=== PATIENT | male | born 1980 | race Caucasian/White ===

== ENCOUNTER → 2019-12-03 15:09 | Outpatient (BNVA) | payer MEDICARE, OTHER, SELFPAY | PROVIDERS: Family Provider Family Medicine; PCP Family Medicine; Visit Provider Podiatrist Foot & Ankle Surgery | DX: S92.351A Displaced fracture of fifth metatarsal bone, right foot, initial encounter for closed fracture (principal); X58.XXXA Exposure to other specified factors, initial encounter | CPT/HCPCS: 73630 ==

== ENCOUNTER → 2020-01-16 14:16 | Outpatient (BNVA) | payer MEDICARE, OTHER, SELFPAY | PROVIDERS: Family Provider Family Medicine; PCP Family Medicine; Visit Provider Podiatrist Foot & Ankle Surgery | DX: S92.355A Nondisplaced fracture of fifth metatarsal bone, left foot, initial encounter for closed fracture (principal); X58.XXXA Exposure to other specified factors, initial encounter | CPT/HCPCS: 73630 ==

== ENCOUNTER 2020-02-07 14:34 | Outpatient (CLI) | payer MEDICARE, OTHER, SELFPAY ==
--- NOTE | 2020-02-07 14:42 | XR_ITS ---
WS: [id number] Chest 2 views, 02/07/2020 Clinical Data: ASSESS FOR METASTATIC DISEASE Comparison: PA and lateral chest, 02/29/2016. Findings: No nodules, masses or effusions are seen. The heart is normal. The pulmonary vascularity is not increased. No pneumonia or pneumothorax is seen. The patient is had a posterior lumbar fusion at L1-L2. XR/XR chest 2V* [id number] Impression: Negative chest.
== END 2020-02-07 14:35 | disposition home or self-care (01) ==
LOC: RAD 14:38
PROVIDERS: Family Provider Family Medicine; PCP Family Medicine; Visit Provider Internal Medicine Medical Oncology
DX: C64.2 Malignant neoplasm of left kidney, except renal pelvis (principal)
CPT/HCPCS: 71046

== ENCOUNTER → 2020-03-30 11:34 | Outpatient (BNVA) | payer MEDICARE, OTHER, SELFPAY | PROVIDERS: Family Provider Family Medicine; PCP Family Medicine; Visit Provider Podiatrist Foot & Ankle Surgery | DX: M79.671 Pain in right foot (principal); S92.351A Displaced fracture of fifth metatarsal bone, right foot, initial encounter for closed fracture; X58.XXXA Exposure to other specified factors, initial encounter | CPT/HCPCS: 73630 ==

== ENCOUNTER → 2020-05-28 14:12 | Outpatient (BNVA) | payer MEDICARE, OTHER, SELFPAY | PROVIDERS: Family Provider Family Medicine; PCP Family Medicine; Visit Provider Podiatrist Foot & Ankle Surgery | DX: S92.355G Nondisplaced fracture of fifth metatarsal bone, left foot, subsequent encounter for fracture with delayed healing (principal); X58.XXXD Exposure to other specified factors, subsequent encounter | CPT/HCPCS: 73630 ==

== ENCOUNTER 2020-08-31 13:27 | Outpatient (CLI) | payer MEDICARE, OTHER, SELFPAY ==
--- NOTE | 2020-08-31 13:41 | XRR_ITS ---
PROCEDURE INFORMATION: Exam: XR Lumbosacral Spine, 2 or 3 Views Exam date and time: 08/31/2020 2:15 PM Age: 40 years old Clinical indication: Low back pain; Prior surgery; Additional info: Metastatic malignant neoplasm/back pain w/radiculopathy TECHNIQUE: Imaging protocol: XR of the lumbosacral spine, 2 or 3 views. COMPARISON: MRI Lumbar Spine w/wo [id number] 05/16/2016 2:47 PM FINDINGS: Vertebrae: There is a healing compression fracture involving the L3 vertebral body status post kyphoplasty. Metallic transpedicular screws and rods are in place posterior to the lumbar spine. No acute fracture. Normal alignment. Soft tissues: Unremarkable. XR/XR lumbar spine 2-3V* [id number] IMPRESSION: 1. Healing compression fracture L3 status post kyphoplasty 2. Metallic orthopedic hardware posterior aspect of the lumbar spine
--- NOTE | 2020-08-31 14:13 | XR_ITS ---
WS: [id number] THORACIC SPINE TECHNIQUE: AP and lateral views are performed. HISTORY: METASTATIC NEOPLASM L KIDNEY/BACK PAIN COMPARISON: None available. Thoracic vertebra are normally aligned. The interpedicular distances are maintained. No loss of verte bral body height or disc space height. No destructive bone lesions are identified. The pedicles are a ll identified. XR/XR thoracic spine 3V* [id number] IMPRESSION: No destructive bone lesions identified. If patient continues with pain consider additional evaluation by CT or MRI which would be more sensitive for metastati c bone disease.
== END 2020-08-31 13:28 | disposition home or self-care (01) ==
LOC: RAD 13:33
PROVIDERS: PCP Family Medicine; Visit Provider Family Medicine
DX: C64.2 Malignant neoplasm of left kidney, except renal pelvis; M54.16 Radiculopathy, lumbar region; S32.030A Wedge compression fracture of third lumbar vertebra, initial encounter for closed fracture; X58.XXXA Exposure to other specified factors, initial encounter
CPT/HCPCS: 72072; 72100

== ENCOUNTER 2020-09-11 18:34 | Emergency (ER) | payer MEDICARE, OTHER, SELFPAY ==
[2020-09-11 19:04] VITALS: BP 134/93; PULSE 86; RESP 18; TEMP 36.7; O2SAT 94; BMI 26.4
[2020-09-11 20:13] VITALS: BP 145/96; PULSE 71; RESP 16; O2SAT 96
[2020-09-11 20:38] LABS: Alanine Aminotransferase 37 U/L (0-41); Albumin Level 4.4 g/dL (3.5-5.2); Alkaline Phosphatase 92 IU/L (40-130); Anion Gap 13.5 (5-19); Aspartate Amino Transferase 26 U/L (0-40); Blood Urea Nitrogen 17 mg/dL (6-20); Calcium 9.5 mg/dL (8.5-10.5); Carbon Dioxide 29 mmol/L (22-29); Chloride 101 mmol/L (98-107); Globulin 2.8 g/dL (1.3-4.6); Glomerular Filtration Rate 67.8 mL/min (90-130); Glucose 78 mg/dL (65-115); Osmolality Calculated 288 mOsm/kg (285-295); Potassium 4.5 mmol/L (3.5-5.1); Sodium 139 mmol/L (136-145); Total Bilirubin 0.3 mg/dL (0.15-1.2); Total Protein 7.2 g/dL (6.6-8.7)
[2020-09-11 20:49] LABS: Basophils % 0.5 %; Eosinophils # 0.1 10^3/uL (0.0-0.8); Eosinophils % 2.1 %; Hematocrit 45.9 % (42.0-52.0); Hemoglobin 15.4 g/dL (11.7-16.6); Lymphocytes % 17.7 %; Mean Corpuscular HGB Conc 33.6 g/dL (30.0-36.0); Mean Corpuscular Hemoglobin 28.8 pg (28.0-34.0); Mean Platelet Volume 10.7 fL (7.4-10.4); Monocytes # 0.5 10^3/uL (0.2-0.9); Neutrophils # 4.07 10^3/uL (1.8-7.7); Neutrophils % 70.5 %; Nucleated Red Blood Cells % 0 %; Platelet Count 153 10^3/cmm (130-400); Red Blood Count 5.34 10^6/uL (4.1-5.3); Red Cell Distribution Width 12.4 % (12.1-15.1); White Blood Count 5.8 10^3/uL (4.0-10.0)
[2020-09-11] MEDS: sodium chloride 0.9% 1,000 ML 999 ML IV (20:50)
[2020-09-11 20:53] VITALS: BP 157/102; PULSE 69; O2SAT 96
[2020-09-11 21:00] VITALS: BP 133/96; PULSE 74; RESP 16; O2SAT 96
[2020-09-11 22:19] VITALS: BP 129/97; PULSE 68; O2SAT 97
--- NOTE | 2020-09-12 00:13 | W.ED.WEAKNES ---
HPI - Weakness General: Chief complaint: Weakness Stated complaint: PHY REFERRAL Time Seen by Provider: 09/11/20 20:15 History of Present Illness: HPI Narrative: 40-year-old male with history of renal cell carcinoma under treatment with immunotherapy presents after feeling of generalized weakness the past couple of days. He was noted to have some blood in his stool over the last week. More so last week than this week he said it was constipated and the constipation has been relieved. He is now just having some blood streaking with stool he has had no fever. No vomiting. Symptoms of generalized weakness and fatigue. MD Complaint: generalized weakness Duration: constant and improved Location: generalized Migration: none Severity: moderate Exacerbating factors: exertion Associated symptoms: Denies chest pain, chills, melena, dysuria, fever(s), headache(s), nausea or vomiting Review of Systems Const: Denies: fever(s) or chills Eyes: Denies: change in vision ENMT: Denies: odynophagia, swelling of lips/tongue, bleeding gums, epistaxis, post nasal drip or sinus pain Card: Denies: chest pain, palpitations or irregular heart rhythm Resp: Denies: dyspnea, productive cough, non-productive cough or wheezing GI: Reports: hematochezia; Denies: abdominal pain, nausea, vomiting, rectal pain or melena : Denies: difficulty urinating, dysuria or hematuria Musc: Reports: back pain; Denies: neck pain or joint warmth Skin/Breast: Denies: rash or erythema Neuro: Denies: headache(s), dizziness or vertigo Psych: Denies: anxiety PFSH ED PFSH: Medical History (Updated 09/11/20 @ 22:05 by John Paul Ceja DO) Closed nondisplaced fracture of fifth left metatarsal bone Diverticulitis of colon Family History Denies family history of Diabetes CAD (coronary artery disease) Clotting disorder Dementia Hyperlipidemia Psychiatric illness Chronic kidney disease (CKD) Suicide Anesthesia complication Bleeding disorder Family history of premature coronary artery disease Lung disease Cancer Hypertension Stroke Social History Smoking and tobacco status: never smoked Second hand smoke exposure: No Smoking risk assessment/counseling performed?: Yes Alcohol intake: never Desire information about alcohol rehabilitation?: No Counseling given: No Desire information about substance/drug rehabilitation?: No Counseling given: No Physical Exam Const: GENERAL APPEARANCE: well developed ORIENTATION/CONSCIOUSNESS: Yes oriented to person, Yes oriented to place and Yes oriented to time HENMT: COMMON NORMALS: normocephalic, external ears normal and Normal external nose present HEAD & SCALP: normocephalic FACE & SINUS: normal facial exam NOSE: Normal external nose present and No nasal discharge present EXTERNAL EAR: Yes external ears normal THROAT: posterior oropharynx normal; no peritonsillar mass Eye: COMMON NORMALS: Equal, round and reactive pupils present, EOMs intact bilaterally and conjunctivae normal EYELID: eyelids normal CONJUNCTIVA: Yes conjunctivae normal PUPIL: Yes Equal, round and reactive pupils present Neck/C-Spine: GENERAL: No tracheal deviation Chest: COMMONS NORMALS: normal inspection of the chest CHEST: No tenderness Resp: COMMON NORMALS: clear to auscultation bilaterally EFFORT & INSPECTION: No tachypneic, No respiratory distress, No retractions, No uses accessory muscles and No tracheal deviation AUSCULTATION: clear to auscultation bilaterally, no rhonchi, no wheezes and lung sounds not diminished Cardio: COMMON NORMALS: regular rate and regular rhythm RATE: regular rate RHYTHM: regular rhythm HEART SOUNDS: no murmurs PERIPHERAL PULSES: radial pulses present GI: INSPECTION: No abdominal distension AUSCULTATION: No Hyperactive bowel sounds present and No Hypoactive bowel sounds present PALPATION: No Guarding due to palpation present (GI) and No Rigid due to palpation PERCUSSION: no dullness to percussion and no tympanic to percussion Neuro: SENSORIUM/ORIENTATION: Yes oriented to person, Yes oriented to place and Yes oriented to time Psych: COMMON NORMALS: mental status grossly normal Skin: COMMON NORMALS: no rashes or lesions noted GENERAL SKIN EXAM: no rashes or lesions noted Course Vital Signs: Vital signs: Vital Signs Temperature 98.1 F 09/11/20 19:04 Pulse Rate 68 09/11/20 22:19 Respiratory Rate 16 09/11/20 21:00 Blood Pressure 129/97 09/11/20 22:19 Pulse Oximetry 97 09/11/20 22:19 MDM - Weakness MDM Narrative: Medical decision making narrative: Patient had talked to the oncologist employment consultant, and the concern was for anemia given his history of GI bleeding, mainly last week. He is under immunotherapy for his renal cell carcinoma. His hemoglobin is 15. His white blood cell count is 5.8. There is no electrolyte abnormality. The patient's symptoms are somewhat improved. He has received a liter of fluid. I offered the patient imaging to see if something may be awry. He notes he would rather go home at this point as he is feeling better than he was a couple of days ago. I think this is reasonable Lab Data: Labs: Lab Results 09/11/20 09/11/20 09/11/20 Range/Units 19:50 19:50 20:45 WBC 5.8 (4.0-10.0) 10^3/ uL RBC 5.34 H (4.1-5.3) 10^6/u L Hgb 15.4 (11.7-16.6) g/dL Hct 45.9 (42.0-52.0) % MCV 86.0 (80-94) fL MCH 28.8 (28.0-34.0) pg MCHC 33.6 (30.0-36.0) g/dL RDW 12.4 (12.1-15.1) % Plt Count 153 (130-400) 10^3/c mm MPV 10.7 H (7.4-10.4) fL Neut % (Auto) 70.5 % Lymph % (Auto) 17.7 % [place] % (Auto) 9.0 % Eos % (Auto) 2.1 % Baso % (Auto) 0.5 % Neut # (Auto) 4.07 (1.8-7.7) 10^3/u L Lymph # (Auto) 1.0 (0.8-4.8) 10^3/u L [place] # (Auto) 0.5 (0.2-0.9) 10^3/u L Eos # (Auto) 0.1 (0.0-0.8) 10^3/u L Baso # (Auto) 0.0 (0.0-0.1) 10^3/u L Nucleated RBC % (a uto) 0 % Nucleated RBCs # 0.0 /100WBC Sodium 139 (136-145) mmol/L Potassium 4.5 (3.5-5.1) mmol/L Chloride 101 (98-107) mmol/L Carbon Dioxide 29 (22-29) mmol/L Anion Gap 13.5 (5-19) BUN 17 (6-20) mg/dL Creatinine 1.2 (0.7-1.2) mg/dL GFR Calculation 67.8 L (90-130) mL/min Glucose 78 (65-115) mg/dL Calculated Osmolal ity 288 (285-295) mOsm/k g Calcium 9.5 (8.5-10.5) mg/dL Total Bilirubin 0.3 (0.15-1.2) mg/dL AST 26 (0-40) U/L ALT 37 (0-41) U/L Alkaline Phosphata se 92 (40-130) IU/L Total Protein 7.2 (6.6-8.7) g/dL Albumin 4.4 (3.5-5.2) g/dL Globulin 2.8 (1.3-4.6) g/dL Blood Type O Positive Rho(D) Type Positive Antibody Screen Negative Discharge Plan Discharge Patient Disposition: Home Clinical Impression: Dehydration Condition: Stable Prescriptions: No Action oxycodone 15 mg tablet 15 mg PO BID PRNRF: 0 (DME) Orthofix Bone stimulator Qty: 1 RF: 0 Discharge Orders: Discharge Order (Routine); Ordered 09/11/20 Ordered By: John Paul Ceja Referrals: Celestino Hurst DO [Primary Care Provider] - Discharge Diet: Advance as tolerated Discharge Activity: Increase activity as tolerated Patient Instructions: Dehydration (ED) Activity Restrictions/Additional Instructions: Return for worsening dizziness, worsening bleeding from the bowel, fever greater than 100, other concerning symptoms. Discharge Date/Time: 09/11/20 22:25 Coding Level of Care Code ED Extension Course Coordinator for Jose Fletcher
== END 2020-09-11 22:25 | disposition home or self-care (01) ==
PROVIDERS: Emergency Provider Emergency Medicine; PCP Family Medicine
DX: E86.0 Dehydration (principal)
CPT/HCPCS: 12345; 80053; 85025; 86850; 86900; 96360; 99283; J7030

== ENCOUNTER 2020-09-26 13:53 | Emergency (ER) | payer MEDICARE, OTHER, SELFPAY ==
[2020-09-26 13:54] VITALS: BP 138/97; PULSE 99; RESP 18; TEMP 36.9; O2SAT 97; BMI 27.1
--- NOTE | 2020-09-26 14:16 | CTR_ITS ---
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 Radiation optimization: All CT scans at this facility use at least one of these dose optimization techniques: automated exposure control; mA and/or kV adjustment per patient size (includes targeted exams where dose is matched to clinical indication); or iterative reconstruction. COMPARISON: [place] [id number] 05/06/2016 8:07 AM, three-view lumbar spine 08/31/2020. [facility] RADIATION DOSE METRICS: Total DLP (mGy-cm): 2240.21 FINDINGS: Vertebrae: Known L3 lytic lesion status post cement injection along with bilateral L1 through L5 transpedicular screw and posterior tanna fixation hardware in place. There are minimally displaced fractures involving the L3 vertebral body and cement of uncertain age as well as mild L3 superior and inferior endplate concave deformities which may have been present on 08/31/2020. Possible tumor destroying/replacing the L3 pedicles and posterior elements versus prior surgical resection. Other bones/joints: 2.3 x 3.4 cm mixed lytic and sclerotic lesion posterior-medial aspect of right iliac bone. Soft tissues: Unremarkable. CT/CT lumbar spine wo con* [id number] IMPRESSION: 1.) Known L3 lytic lesion status post cement injection along with bilateral L1 through L5 transpedicular screw and posterior tanna fixation hardware in place. There are minimally displaced fractures involving the L3 vertebral body and cement of uncertain age as well as mild L3 superior and inferior endplate concave deformities which may have been present on 08/31/2020. Possible tumor destroying/replacing the L3 pedicles and posterior elements versus prior surgical resection. 2.)2.3 x 3.4 cm mixed lytic and sclerotic lesion posterior-medial aspect of right iliac bone. Radiation Dose CTDIVOL = (mGy): DLP = 2240.21 (mGy-cm)
--- NOTE | 2020-09-26 14:16 | CTR_ITS ---
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 Radiation optimization: All CT scans at this facility use at least one of these dose optimization techniques: automated exposure control; mA and/or kV adjustment per patient size (includes targeted exams where dose is matched to clinical indication); or iterative reconstruction. COMPARISON: CR XR thoracic spine 3V* [id number] 08/31/2020 2:17 PM RADIATION DOSE METRICS: Total DLP (mGy-cm): 1626.32 FINDINGS: Vertebrae: Focal lytic lesions posterior portions of the T10 and T12 vertebral bodies and more diffusely throughout the T11 vertebral body worrisome for metastatic disease. No pathologic compression fracture evident. T1-T2: No significant disc protrusion. No severe spinal canal stenosis. No significant neural foraminal narrowing. T2-T3: No significant disc protrusion. No severe spinal canal stenosis. No significant neural foraminal narrowing. T3-T4: No significant disc protrusion. No severe spinal canal stenosis. No significant neural foraminal narrowing. T4-T5: No significant disc protrusion. No severe spinal canal stenosis. No significant neural foraminal narrowing. T5-T6: No significant disc protrusion. No severe spinal canal stenosis. No significant neural foraminal narrowing. T6-T7: No significant disc protrusion. No severe spinal canal stenosis. No significant neural foraminal narrowing. T7-T8: No significant disc protrusion. No severe spinal canal stenosis. No significant neural foraminal narrowing. T8-T9: No significant disc protrusion. No severe spinal canal stenosis. No significant neural foraminal narrowing. T9-T10: No significant disc protrusion. No severe spinal canal stenosis. No significant neural foraminal narrowing. T10-T11: No significant disc protrusion. No severe spinal canal stenosis. No significant neural foraminal narrowing. T11-T12: No significant disc protrusion. No severe spinal canal stenosis. No significant neural foraminal narrowing. T12-L1: No significant disc protrusion. No severe spinal canal stenosis. No significant neural foraminal narrowing. CT/CT thoracic spin wo con* [id number] IMPRESSION: Focal lytic lesions posterior portions of the T10 and T12 vertebral bodies and more diffusely throughout the T11 vertebral body worrisome for metastatic disease. No pathologic compression fracture evident. Radiation Dose CTDIVOL = (mGy): DLP = 1626.32 (mGy-cm)
--- NOTE | 2020-09-26 14:18 | W.ED.BACK ---
Documented by User: RAQUEL Irizarry 09/26/20 17:27 HPI - Back Pain/Injury General: Chief Complaint: Back Pain/Injury Stated Complaint: back pain/ feels like he broke rods in back Time Seen by Provider: 09/26/20 14:01 History of Present Illness: HPI Narrative: 40-year-old male patient presents to the emergency department with concern that tanna has popped in the lower back. He reports he bent over and picked up a sock off the floor, felt a large pop in his back, concern for hardware failure/fracture, has occurred in the past. He reports pain with movement, along with popping sensation. First lumbar back surgery 2016 due to renal cell carcinoma metastatic disease, reports removal of L3 due to metastatic lesion, fusion of L1 and L2 and L4 and L5. He reports fusion did not take; reports additional hardware and screws at [facility] in 2018 to the lumbar spine. He continues with radiation and immunotherapy at [facility] for renal cell carcinoma metastatic disease. States cool sensation feeling in the bilateral lower extremities, denies weakness, denies upper extremity weakness or neuropathy symptoms. MD elicited complaint: back pain and back injury Pertinent past history: prior back pain Onset (ago): day(s) (1) Timing: intermittent Similar Symptoms Previously: Yes Quality: dull and throbbing Location: lumbar spine and thoracic spine Radiation: none Exacerbating factors: movement Relieving factors: immobilization Context: bending Associated symptoms: Reports tingling/numbness/burning; Deny abdominal pain, chills, dysuria, fever(s), nausea, urinary urgency or vomiting Treatments prior to arrival: prescription analgesics Review of Systems General: Reports: 10 or more systems reviewed and unremarkable except in HPI and below Const: Denies: fever(s), chills or diaphoresis Eyes: Denies: blurry vision or eye redness ENMT: Denies: throat pain, dental pain or disequilibrium Card: Denies: chest pain, palpitations or irregular heart rhythm Resp: Denies: dyspnea, productive cough, non-productive cough or wheezing GI: Denies: abdominal pain, nausea or vomiting : Denies: difficulty urinating, dysuria or urinary urgency Musc: Reports: back pain; Denies: neck pain, extremity pain, joint warmth or muscle cramps Skin/Breast: Denies: rash or pruritus Neuro: Denies: headache(s), weakness in extremities or behavioral changes Psych: Denies: anxiety or depression Gabriel/Lymph: Denies: easy bruising PFSH ED PFSH: Medical History Closed nondisplaced fracture of fifth left metatarsal bone Diverticulitis of colon Family History Denies family history of Diabetes CAD (coronary artery disease) Clotting disorder Dementia Hyperlipidemia Psychiatric illness Chronic kidney disease (CKD) Suicide Anesthesia complication Bleeding disorder Family history of premature coronary artery disease Lung disease Cancer Hypertension Stroke Social History Smoking and tobacco status: never smoked Second hand smoke exposure: No Smoking risk assessment/counseling performed?: Yes Alcohol intake: never Desire information about alcohol rehabilitation?: No Counseling given: No Desire information about substance/drug rehabilitation?: No Counseling given: No Physical Exam Const: COMMON NORMALS: no acute distress, patient oriented x3, healthy appearing and alert GENERAL APPEARANCE: cooperative, comfortable and well hydrated HENMT: COMMON NORMALS: normocephalic, Normal external nose present and moist oral mucous membranes HEAD & SCALP: normocephalic NOSE: Normal external nose present Eye: COMMON NORMALS: Equal, round and reactive pupils present and EOMs intact bilaterally GENERAL EYE: appearance normal, both eyes and all related structures PUPIL: Yes Equal, round and reactive pupils present Neck/C-Spine: COMMON NORMALS: full ROM and no lymphadenopathy GENERAL: Yes normal visual inspection and Yes trachea midline CERVICAL SPINE: Yes cervical ROM normal Lymph: LYMPHATIC: no lymphadenopathy noted Chest: COMMONS NORMALS: normal inspection of the chest and normal palpation of entire chest wall Resp: COMMON NORMALS: normal respiratory effort, No use of accessory muscles and clear to auscultation bilaterally EFFORT & INSPECTION: Yes able to speak in complete sentences AUSCULTATION: clear to auscultation bilaterally Cardio: COMMON NORMALS: regular rhythm, S1 normal heart sound present, S2 normal heart sound present and Peripheral pulses 2+ throughout RHYTHM: regular rhythm HEART SOUNDS: S1 normal heart sound present and S2 normal heart sound present PERIPHERAL PULSES: Peripheral pulses 2+ throughout GI: COMMON NORMALS: Normal to inspection, nondistended, normoactive bowel sounds present, Soft to palpation and non-tender INSPECTION: Yes normal to inspection PALPATION: Yes Soft to palpation : COMMON NORMALS: Yes no CVA tenderness BLADDER/KIDNEY EXAM: Yes no CVA tenderness and No CVA tenderness Back/Pelvis: COMMON NORMALS: no CVA tenderness GENERAL BACK: No CVA tenderness THORACIC SPINE/UPPER BACK: Yes normal to inspection, Yes thoracic ROM normal and Yes pain with ROM (Positive crepitus noted with movement) LUMBAR SPINE/LOWER BACK: Yes normal to inspection, Yes pain with ROM (popping to the lumbar spine, positive crepitus movement.) and No paraspinal muscle tenderness PELVIS: Yes buttocks normal SACROILIAC JOINTS: Yes SI joints normal SACRUM: no ecchymosis COCCYX: no swelling Extremity: COMMON NORMALS: normal to inspection and capillary refill normal GENERAL: Yes normal exam except as noted Neuro: COMMON NORMALS: patient oriented x3 and no focal motor deficits SENSORIUM/ORIENTATION: Yes alert SPEECH: speech normal GAIT: Yes Normal gait present MONOFILAMENT EXAM PERFORMED: Yes Monofilament Exam (small fiber function): L great toe: normal, L 3rd toe: normal, L 5th toe: normal, R great toe: decreased, R 3rd toe: normal and R 5th toe: normal MOTOR EXAM: 5/5 motor strength present throughout Psych: COMMON NORMALS: mental status grossly normal, Normal thought process present and cooperative ACTIVITY/MOTOR BEHAVIOR: Yes appropriate eye contact THOUGHT PROCESS: Normal thought process present Skin: COMMON NORMALS: no rashes or lesions noted and turgor normal GENERAL SKIN EXAM: no rashes or lesions noted and turgor normal Course ED course: 40-year-old male patient presents to the emergency department with concern of lumbar spine tanna displacement/fracture. 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 Reports pain resolved, he continues to experience popping sensation in his lumbar spine. Neuropathy/neurological compromise to the extremities not appreciated. [facility] contacted in regards to findings of CT of the thoracic and lumbar spine. Oncology, Dr. Jo prefers to have patient evaluated at [facility]. My conversation with radiologist, fractures could be unstable and uncertain how long fractures have been present. Findings discussed with the patient, agrees for transfer to [facility] for evaluation by his neurosurgeon and oncologist. Consultations: Consultation #1: Dr Jo, oncology - [facility] -discussed with Dr. Jo concerning findings of the thoracic spine CT and lumbar spine CT with new interval of minimally displaced fractures involving L3 vertebral body and cement of uncertain age as well as mild L3 superior and inferior endplate concave deformities which may have been present on a [place] [facility] [place] Upon my discussion with Dr. Jo, MRI completed last week did not appreciate such findings. He advised patient to be transferred to [facility] for evaluation by neurosurgery. PT PTT advised along with n.p.o. status. He agrees to accept patient to oncology if neurosurgery does not prefer to have patient on the neurosurgery unit. Vital Signs: Vital signs: Vital Signs Temperature 98.5 F 09/26/20 13:54 Pulse Rate 83 09/26/20 17:01 Respiratory Rate 15 09/26/20 17:01 Blood Pressure 143/83 09/26/20 17:01 Pulse Oximetry 100 09/26/20 17:01 MDM - Back Pain/Injury Lab Data: Labs: Lab Results 09/26/20 09/26/20 09/26/20 Range/Units 14:38 14:38 14:38 WBC 5.8 (4.0-10.0) 10^3/ uL RBC 5.39 H (4.1-5.3) 10^6/u L Hgb 15.6 (11.7-16.6) g/dL Hct 47.0 (42.0-52.0) % MCV 87.2 (80-94) fL MCH 28.9 (28.0-34.0) pg MCHC 33.2 (30.0-36.0) g/dL RDW 12.6 (12.1-15.1) % Plt Count 215 (130-400) 10^3/c mm MPV 9.9 (7.4-10.4) fL Neut % (Auto) 64.0 % Lymph % (Auto) 20.7 % [place] % (Auto) 13.1 % Eos % (Auto) 1.6 % Baso % (Auto) 0.3 % Neut # (Auto) 3.71 (1.8-7.7) 10^3/u L Lymph # (Auto) 1.2 (0.8-4.8) 10^3/u L [place] # (Auto) 0.8 (0.2-0.9) 10^3/u L Eos # (Auto) 0.1 (0.0-0.8) 10^3/u L Baso # (Auto) 0.0 (0.0-0.1) 10^3/u L Nucleated RBC % (a uto) 0 % Nucleated RBCs # 0.0 /100WBC PT 12.80 (12.1-14.9) SECO NDS INR 0.93 (0.8-1.2) APTT 28.6 (23.9-36.7) SECO NDS Sodium 142 (136-145) mmol/L Potassium 4.1 (3.5-5.1) mmol/L Chloride 103 (98-107) mmol/L Carbon Dioxide 31 H (22-29) mmol/L Anion Gap 12.1 (5-19) BUN 19 (6-20) mg/dL Creatinine 1.5 H (0.7-1.2) mg/dL GFR Calculation 52.4 L (90-130) mL/min Glucose 93 (65-115) mg/dL Calculated Osmolal ity 296 H (285-295) mOsm/k g Calcium 9.6 (8.5-10.5) mg/dL Total Bilirubin 0.3 (0.15-1.2) mg/dL AST 19 (0-40) U/L ALT 24 (0-41) U/L Alkaline Phosphata se 93 (40-130) IU/L Total Protein 7.0 (6.6-8.7) g/dL Albumin 4.4 (3.5-5.2) g/dL Globulin 2.6 (1.3-4.6) g/dL Imaging Data^: Other Xray: Radiologist's impression: [address] [address] [address] Scan Report Signed Patient: Lokesh Plummer Unit #: [id number] : 1980 Age/Sex: 40 / M ADM Date: 09/26/20 Loc: ER Room/Bed: Attending Dr: Ordering Provider/Ordering MD: Andie Dowell Date of Service: 09/26/20 Procedure(s): CT thoracic spin wo con* [id number] Accession Number(s): [id number] Report Number: [id number] PROCEDURE INFORMATION: Exam: CT Thoracic Spine Without Contrast Exam date and time: 09/26/2020 2:19 PM Age: 40 years old Clinical indication: Pain in thoracic spine; Without myelpathy or radiculopathy; Patient HX: HX of renal cell, 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 Radiation optimization: All CT scans at this facility use at least one of these dose optimization techniques: automated exposure control; mA and/or kV adjustment per patient size (includes targeted exams where dose is matched to clinical indication); or iterative reconstruction. COMPARISON: CR XR thoracic spine 3V* [id number] 08/31/2020 2:17 PM RADIATION DOSE METRICS: Total DLP (mGy-cm): 1626.32 FINDINGS: Vertebrae: Focal lytic lesions posterior portions of the T10 and T12 vertebral bodies and more diffusely throughout the T11 vertebral body worrisome for metastatic disease. No pathologic compression fracture evident. T1-T2: No significant disc protrusion. No severe spinal canal stenosis. No significant neural foraminal narrowing. T2-T3: No significant disc protrusion. No severe spinal canal stenosis. No significant neural foraminal narrowing. T3-T4: No significant disc protrusion. No severe spinal canal stenosis. No significant neural foraminal narrowing. T4-T5: No significant disc protrusion. No severe spinal canal stenosis. No significant neural foraminal narrowing. T5-T6: No significant disc protrusion. No severe spinal canal stenosis. No significant neural foraminal narrowing. T6-T7: No significant disc protrusion. No severe spinal canal stenosis. No significant neural foraminal narrowing. T7-T8: No significant disc protrusion. No severe spinal canal stenosis. No significant neural foraminal narrowing. T8-T9: No significant disc protrusion. No severe spinal canal stenosis. No significant neural foraminal narrowing. T9-T10: No significant disc protrusion. No severe spinal canal stenosis. No significant neural foraminal narrowing. T10-T11: No significant disc protrusion. No severe spinal canal stenosis. No significant neural foraminal narrowing. T11-T12: No significant disc protrusion. No severe spinal canal stenosis. No significant neural foraminal narrowing. T12-L1: No significant disc protrusion. No severe spinal canal stenosis. No significant neural foraminal narrowing. CT/CT thoracic spin wo con* [id number] IMPRESSION: Focal lytic lesions posterior portions of the T10 and T12 vertebral bodies and more diffusely throughout the T11 vertebral body worrisome for metastatic disease. No pathologic compression fracture evident. Radiation Dose CTDIVOL = (mGy): DLP = 1626.32 (mGy-cm) Dictated By: Ousmane Sommer MD Signed By: Ousmane Sommer MD Signed Date/Time: 09/26/20 1522 DD/ 1521 Other Imaging: Radiologist's impression: [place] [address] CT Scan Report Signed with Addenda Patient: Lokesh Plummer Unit #: [id number] : 1980 Age/Sex: 40 / M ADM Date: 09/26/20 Loc: ER Room/Bed: Attending Dr: Ordering Provider/Ordering MD: Andie Dowell Date of Service: 09/26/20 Procedure(s): CT lumbar spine wo con* [id number] Accession Number(s): [id number] Report Number: [id number]/CT lumbar spine wo con* [id number] Addendum created at 4:[address] findings discussed with SHREYSA Dowell via phone conference at 3:55 p.m.. Findings were understood and acknowledged. 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 Radiation optimization: All CT scans at this facility use at least one of these dose optimization techniques: automated exposure control; mA and/or kV adjustment per patient size (includes targeted exams where dose is matched to clinical indication); or iterative reconstruction. COMPARISON: [place] [id number] 05/06/2016 8:07 AM, three-view lumbar spine 08/31/2020. [facility] RADIATION DOSE METRICS: Total DLP (mGy-cm): 2240.21 FINDINGS: Vertebrae: Known L3 lytic lesion status post cement injection along with bilateral L1 through L5 transpedicular screw and posterior tanna fixation hardware in place. There are minimally displaced fractures involving the L3 vertebral body and cement of uncertain age as well as mild L3 superior and inferior endplate concave deformities which may have been present on 08/31/2020. Possible tumor destroying/replacing the L3 pedicles and posterior elements versus prior surgical resection. Other bones/joints: 2.3 x 3.4 cm mixed lytic and sclerotic lesion posterior-medial aspect of right iliac bone. Soft tissues: Unremarkable. CT/CT lumbar spine wo con* [id number] IMPRESSION: 1.) Known L3 lytic lesion status post cement injection along with bilateral L1 through L5 transpedicular screw and posterior tanna fixation hardware in place. There are minimally displaced fractures involving the L3 vertebral body and cement of uncertain age as well as mild L3 superior and inferior endplate concave deformities which may have been present on 08/31/2020. Possible tumor destroying/replacing the L3 pedicles and posterior elements versus prior surgical resection. 2.)2.3 x 3.4 cm mixed lytic and sclerotic lesion posterior-medial aspect of right iliac bone. Radiation Dose CTDIVOL = (mGy): DLP = 2240.21 (mGy-cm) Dictated By: Ousmane Sommer MD Signed By: Ousmane Sommer MD Signed Date/Time: 09/26/20 1549 DD/ 46 Discharge Plan Discharge Prescriptions: No Action oxycodone 15 mg tablet 15 mg PO BID PRN (Reason: Pain) RF: 0 OxyContin 40 mg Tablet,Oral Only,Ext.Rel.12 Hr 40 mg PO BID RF: 0 Coding Level of Care Code ED Devops Developer for Chg Fwd Exam Comprehensive Documented by User: José Diana DO 09/26/20 17:00 HPI - Back Pain/Injury General: Chief Complaint: Back Pain/Injury Stated Complaint: back pain/ feels like he broke rods in back Time Seen by Provider: 09/26/20 14:01 History of Present Illness: HPI Narrative: Patient initially seen by nurse practitioner. I was consulted due to the diagnosis. Talk to patient he is resting comfortably in the bed he has a grating sensation in his low back lungs he does not move he has minimal to no significant pain Andie Kunz's note was reviewed agree with diagnosis and discharge plan. She is talked to the neurosurgeon at [facility] and they will accept him. MD elicited complaint: back pain Pertinent past history: prior back pain Similar Symptoms Previously: Yes Quality: sharp Radiation: none Exacerbating factors: movement Relieving factors: immobilization Context: bending Associated symptoms: Reports arthralgias; Deny abdominal pain, chills, change in bowel habits, difficulty walking, dysuria, fatigue, fecal incontinence, fever(s), hematuria, myalgias, nausea, numbness, syncope, tingling/numbness/burning, urinary frequency, urinary urgency, vomiting or weakness Review of Systems Const: Denies: fever(s), chills or fatigue ENMT: Denies: throat pain, ear or mastoid pain, nasal discharge or nasal congestion Card: Denies: syncope Resp: Denies: dyspnea, productive cough or non-productive cough GI: Denies: abdominal pain, nausea, vomiting, fecal incontinence or change in bowel habits : Denies: dysuria, urinary urgency or hematuria Musc: Reports: back pain Skin/Breast: Denies: rash or pruritus Neuro: Denies: difficulty walking PFSH ED PFSH: Medical History Closed nondisplaced fracture of fifth left metatarsal bone Diverticulitis of colon Family History Denies family history of Diabetes CAD (coronary artery disease) Clotting disorder Dementia Hyperlipidemia Psychiatric illness Chronic kidney disease (CKD) Suicide Anesthesia complication Bleeding disorder Family history of premature coronary artery disease Lung disease Cancer Hypertension Stroke Social History Smoking and tobacco status: never smoked Second hand smoke exposure: No Smoking risk assessment/counseling performed?: Yes Alcohol intake: never Desire information about alcohol rehabilitation?: No Counseling given: No Desire information about substance/drug rehabilitation?: No Counseling given: No Physical Exam Const: COMMON NORMALS: no acute distress GENERAL APPEARANCE: cooperative and comfortable ORIENTATION/CONSCIOUSNESS: Yes awake, Yes oriented to person, Yes oriented to place and Yes oriented to time HENMT: COMMON NORMALS: normocephalic, atraumatic and hearing grossly normal bilaterally HEAD & SCALP: normocephalic and atraumatic Eye: COMMON NORMALS: Equal, round and reactive pupils present, EOMs intact bilaterally, conjunctivae normal and no scleral icterus CONJUNCTIVA: Yes conjunctivae normal PUPIL: Yes Equal, round and reactive pupils present Neck/C-Spine: COMMON NORMALS: no JVD Resp: COMMON NORMALS: normal respiratory effort, No retractions, No use of accessory muscles and clear to auscultation bilaterally AUSCULTATION: clear to auscultation bilaterally Cardio: COMMON NORMALS: no JVD, regular rate, regular rhythm and No murmurs present (Cardio) RATE: regular rate RHYTHM: regular rhythm Extremity: COMMON NORMALS: normal to inspection, capillary refill normal, no clubbing, cyanosis or edema, no calf tenderness and no pedal edema Neuro: SENSORIUM/ORIENTATION: Yes oriented to person, Yes oriented to place and Yes oriented to time Skin: COMMON NORMALS: no rashes or lesions noted GENERAL SKIN EXAM: no rashes or lesions noted Course Vital Signs: Vital signs: Vital Signs Temperature 98.5 F 09/26/20 13:54 Pulse Rate 83 09/26/20 17:01 Respiratory Rate 15 09/26/20 17:01 Blood Pressure 143/83 09/26/20 17:01 Pulse Oximetry 100 09/26/20 17:01 MDM - Back Pain/Injury MDM Narrative: Medical decision making narrative: Agree with assessment and plan. Reviewed with her were making arrangements to transport him to [facility]. Given the unstable notes of this fracture I would recommend that he go by air ambulance if that is available today. Ground transport could increase his pain increases risk for further injury. Lab Data: Labs: Lab Results 09/26/20 09/26/20 09/26/20 Range/Units 14:38 14:38 14:38 WBC 5.8 (4.0-10.0) 10^3/ uL RBC 5.39 H (4.1-5.3) 10^6/u L Hgb 15.6 (11.7-16.6) g/dL Hct 47.0 (42.0-52.0) % MCV 87.2 (80-94) fL MCH 28.9 (28.0-34.0) pg MCHC 33.2 (30.0-36.0) g/dL RDW 12.6 (12.1-15.1) % Plt Count 215 (130-400) 10^3/c mm MPV 9.9 (7.4-10.4) fL Neut % (Auto) 64.0 % Lymph % (Auto) 20.7 % [place] % (Auto) 13.1 % Eos % (Auto) 1.6 % Baso % (Auto) 0.3 % Neut # (Auto) 3.71 (1.8-7.7) 10^3/u L Lymph # (Auto) 1.2 (0.8-4.8) 10^3/u L [place] # (Auto) 0.8 (0.2-0.9) 10^3/u L Eos # (Auto) 0.1 (0.0-0.8) 10^3/u L Baso # (Auto) 0.0 (0.0-0.1) 10^3/u L Nucleated RBC % (a uto) 0 % Nucleated RBCs # 0.0 /100WBC PT 12.80 (12.1-14.9) SECO NDS INR 0.93 (0.8-1.2) APTT 28.6 (23.9-36.7) SECO NDS Sodium 142 (136-145) mmol/L Potassium 4.1 (3.5-5.1) mmol/L Chloride 103 (98-107) mmol/L Carbon Dioxide 31 H (22-29) mmol/L Anion Gap 12.1 (5-19) BUN 19 (6-20) mg/dL Creatinine 1.5 H (0.7-1.2) mg/dL GFR Calculation 52.4 L (90-130) mL/min Glucose 93 (65-115) mg/dL Calculated Osmolal ity 296 H (285-295) mOsm/k g Calcium 9.6 (8.5-10.5) mg/dL Total Bilirubin 0.3 (0.15-1.2) mg/dL AST 19 (0-40) U/L ALT 24 (0-41) U/L Alkaline Phosphata se 93 (40-130) IU/L Total Protein 7.0 (6.6-8.7) g/dL Albumin 4.4 (3.5-5.2) g/dL Globulin 2.6 (1.3-4.6) g/dL Discharge Plan Discharge Prescriptions: No Action oxycodone 15 mg tablet 15 mg PO BID PRN (Reason: Pain) RF: 0 OxyContin 40 mg Tablet,Oral Only,Ext.Rel.12 Hr 40 mg PO BID RF: 0 Coding Level of Care Code ED Devops Developer for Rupertog Fwd Exam Comprehensive
[2020-09-26 14:46] LABS: Basophils % 0.3 %; Eosinophils # 0.1 10^3/uL (0.0-0.8); Eosinophils % 1.6 %; Hemoglobin 15.6 g/dL (11.7-16.6); Lymphocytes # 1.2 10^3/uL (0.8-4.8); Lymphocytes % 20.7 %; Mean Corpuscular HGB Conc 33.2 g/dL (30.0-36.0); Mean Corpuscular Hemoglobin 28.9 pg (28.0-34.0); Mean Corpuscular Volume 87.2 fL (80-94); Mean Platelet Volume 9.9 fL (7.4-10.4); Monocytes # 0.8 10^3/uL (0.2-0.9); Monocytes % 13.1 %; Neutrophils # 3.71 10^3/uL (1.8-7.7); Nucleated Red Blood Cells % 0 %; Platelet Count 215 10^3/cmm (130-400); Red Blood Count 5.39 10^6/uL (4.1-5.3); Red Cell Distribution Width 12.6 % (12.1-15.1); White Blood Count 5.8 10^3/uL (4.0-10.0)
[2020-09-26 15:11] LABS: Alanine Aminotransferase 24 U/L (0-41); Albumin Level 4.4 g/dL (3.5-5.2); Alkaline Phosphatase 93 IU/L (40-130); Anion Gap 12.1 (5-19); Aspartate Amino Transferase 19 U/L (0-40); Blood Urea Nitrogen 19 mg/dL (6-20); Calcium 9.6 mg/dL (8.5-10.5); Carbon Dioxide 31 mmol/L (22-29); Chloride 103 mmol/L (98-107); Globulin 2.6 g/dL (1.3-4.6); Glomerular Filtration Rate 52.4 mL/min (90-130); Glucose 93 mg/dL (65-115); Osmolality Calculated 296 mOsm/kg (285-295); Potassium 4.1 mmol/L (3.5-5.1); Sodium 142 mmol/L (136-145); Total Bilirubin 0.3 mg/dL (0.15-1.2)
[2020-09-26 17:01] VITALS: BP 143/83; PULSE 83; RESP 15; O2SAT 100
[2020-09-26] MEDS: sodium chloride 0.9% 1,000 ML 150 ML IV (17:03)
[2020-09-26 17:12] LABS: INR 0.93 (0.8-1.2); Partial Thromboplastin Time 28.6 SECONDS (23.9-36.7)
[2020-09-26 19:01] VITALS: BP 106/78; PULSE 66; RESP 18
[2020-09-26 19:20] VITALS: BP 106/78; PULSE 66; RESP 18
== END 2020-09-26 19:20 | disposition other institution (70) ==
PROVIDERS: Nurse Practitioner Family; Emergency Provider Family Medicine; PCP Family Medicine
DX: M54.5 Low back pain (principal)
CPT/HCPCS: 12345; 51702; 72128; 72131; 80053; 85025; 85610; 85730; 96360; 96361; 99283; J7030

== ENCOUNTER 2020-11-26 15:27 | Emergency (ER) | payer MEDICARE, OTHER, SELFPAY ==
[2020-11-26 15:29] VITALS: BP 138/87; PULSE 104; RESP 18; TEMP 36.6; O2SAT 96; BMI 3905.5
[2020-11-26] MEDS: amoxicillin-clav 875-125 mg Tablet 1 TAB PO (18:12)
[2020-11-26] MEDS: rabies vaccine 2.5 unit SDV IM (18:15)
--- NOTE | 2020-11-26 20:34 | ED_ITS ---
HPI - Animal Bite General: Chief Complaint: Animal Bite Stated Complaint: ANIMAL BITE Time Seen by Provider: 11/26/20 18:04 History of Present Illness: HPI narrative: Mr. Ocasio is an immunocompromise patient receiving cancer treatment from [facility]. Who got bit by a feral cat last night. On his left hand forefinger and middle finger. Was sent here by Dr. Yanez's office for rabies treatment antibiotics. complaint: animal bite Onset (ago): day(s) Animal: cat Description of animal: wild animal Mechanism: bite Location - Extremities: Left: hand Pain description: sharp Severity scale (1-10): 1 Context: other (Trend if free From trap) Associated symptoms: Reports no associated symptoms; Deny chills or fever(s) Review of Systems Const: Denies: fever(s) or chills Skin/Breast: Reports: other (Has 2 puncture wounds 1 to his left forefinger 1 to his left middle finger) Psych: Denies: anxiety or depression PFS ED PFSH: Medical History (Updated 11/26/20 @ 18:21 by DARRIN Vega) Closed nondisplaced fracture of fifth left metatarsal bone Diverticulitis of colon Family History Denies family history of Diabetes CAD (coronary artery disease) Clotting disorder Dementia Hyperlipidemia Psychiatric illness Chronic kidney disease (CKD) Suicide Anesthesia complication Bleeding disorder Family history of premature coronary artery disease Lung disease Cancer Hypertension Stroke Social History Smoking and tobacco status: never smoked Second hand smoke exposure: No Smoking risk assessment/counseling performed?: Yes Alcohol intake: never Desire information about alcohol rehabilitation?: No Counseling given: No Desire information about substance/drug rehabilitation?: No Counseling given: No Physical Exam Const: COMMON NORMALS: no acute distress Psych: COMMON NORMALS: mental status grossly normal Skin: OTHER: Puncture wound with slight redness to forefinger and middle finger left hand on the palmar aspect I injected rabies immunoglobulin and around the sites with 30-gauge needle 1 mL total Course Vital Signs: Vital signs: Vital Signs Temperature 97.9 F 11/26/20 15:29 Pulse Rate 104 H 11/26/20 15:29 Respiratory Rate 18 11/26/20 15:29 Blood Pressure 138/87 11/26/20 15:29 Pulse Oximetry 96 11/26/20 15:29 Discharge Plan Discharge Patient Disposition: Home Clinical Impression: Bite by animal, Rabies contact Cat bite Qualifiers: Encounter type: initial encounter Qualified Code(s): W55.01XA - Bitten by cat, initial encounter Condition: Stable Prescriptions: New Augmentin 875-125 mg tablet 1 tab PO BID Qty: 14 RF: 0 No Action oxycodone 15 mg tablet 15 mg PO BID PRN (Reason: Pain) RF: 0 OxyContin 40 mg Tablet,Oral Only,Ext.Rel.12 Hr 40 mg PO BID RF: 0 Discharge Orders: Discharge ED (Routine); Ordered 11/26/20 Ordered By: David Briggs Referrals: Celestino Hurst DO [Primary Care Provider] - Discharge Diet: Usual diet Discharge Activity: Resume usual activity Patient Instructions: Rabies Vaccine (Injection), Rabies Immune Globulin (Injection), Animal Bite (ED), Rabies (ED) Activity Restrictions/Additional Instructions: follow regimen guidelines given to you for follow up injections. follow up with Dr. Hurst as needed. Coding Level of Care Code ED Director [employer] for Jose Fletcher
== END 2020-11-26 18:31 | disposition home or self-care (01) ==
PROVIDERS: Emergency Provider Nurse Practitioner Family; PCP Family Medicine
DX: S61.251A Open bite of left index finger without damage to nail, initial encounter (principal); S61.253A Open bite of left middle finger without damage to nail, initial encounter; W55.01XA Bitten by cat, initial encounter; Z20.3 Contact with and (suspected) exposure to rabies; Z23 Encounter for immunization
CPT/HCPCS: 12345; 90375; 90471; 90675; 96372; 99281; 99283

== ENCOUNTER 2021-03-19 17:36 | Emergency (ER) | payer MEDICARE, OTHER, SELFPAY ==
[2021-03-19 18:00] VITALS: BP 127/93; PULSE 114; RESP 18; TEMP 36.4; O2SAT 96; BMI 27.1
--- NOTE | 2021-03-19 18:37 | CTR_ITS ---
PROCEDURE INFORMATION: Exam: CT Head Without Contrast Exam date and time: 03/19/2021 6:45 PM Age: 40 years old Clinical indication: Pain; Headache; Additional info: Headaches, bleeding issues, on chemo TECHNIQUE: Imaging protocol: Computed tomography of the head without contrast. Radiation optimization: All CT scans at this facility use at least one of these dose optimization techniques: automated exposure control; mA and/or kV adjustment per patient size (includes targeted exams where dose is matched to clinical indication); or iterative reconstruction. COMPARISON: No relevant prior studies available. RADIATION DOSE METRICS: Total DLP (mGy-cm): 897.53 FINDINGS: Brain: Normal. No hemorrhage. Unremarkable white matter. No mass effect. Cerebral ventricles: No ventriculomegaly. Bones/joints: Unremarkable. No acute fracture. Paranasal sinuses: Visualized sinuses are unremarkable. No fluid levels. Mastoid air cells: Visualized mastoid air cells are well aerated. Soft tissues: Unremarkable. CT/CT head wo con* [id number] IMPRESSION: No acute intracranial abnormality. Radiation Dose CTDIVOL = (mGy): DLP = 897.53 (mGy-cm)
[2021-03-19 18:42] VITALS: BP 135/109; PULSE 110; RESP 17; O2SAT 97
[2021-03-19 19:00] LABS: Basophils % 0.4 %; Eosinophils # 0.1 10^3/uL (0.0-0.8); Eosinophils % 1.3 %; Hematocrit 49.6 % (42.0-52.0); Hemoglobin 16.6 g/dL (11.7-16.6); Lymphocytes # 1.1 10^3/uL (0.8-4.8); Mean Corpuscular HGB Conc 33.5 g/dL (30.0-36.0); Mean Corpuscular Hemoglobin 29.4 pg (28.0-34.0); Mean Corpuscular Volume 87.8 fL (80-94); Mean Platelet Volume 11.4 fL (7.4-10.4); Monocytes # 0.7 10^3/uL (0.2-0.9); Monocytes % 7.5 %; Neutrophils # 7.11 10^3/uL (1.8-7.7); Neutrophils % 78.6 %; Nucleated Red Blood Cells % 0 %; Platelet Count 214 10^3/cmm (130-400); Red Blood Count 5.65 10^6/uL (4.1-5.3); Red Cell Distribution Width 12.5 % (12.1-15.1); White Blood Count 9.1 10^3/uL (4.0-10.0)
[2021-03-19 19:08] LABS: INR 0.93 (0.8-1.2)
[2021-03-19 19:12] LABS: Alanine Aminotransferase 26 U/L (0-41); Albumin Level 4.8 g/dL (3.5-5.2); Alkaline Phosphatase 86 IU/L (40-130); Anion Gap 15.2 (5-19); Aspartate Amino Transferase 23 U/L (0-40); Blood Urea Nitrogen 15 mg/dL (6-20); C Reactive Protein 6.3 mg/L (0.0-4.9); Calcium 9.5 mg/dL (8.5-10.5); Carbon Dioxide 28 mmol/L (22-29); Chloride 100 mmol/L (98-107); Globulin 2.7 g/dL (1.3-4.6); Glomerular Filtration Rate 61.8 mL/min (90-130); Glucose 81 mg/dL (65-115); Magnesium 1.8 mg/dL (1.7-2.3); Osmolality Calculated 288 mOsm/kg (285-295); Potassium 4.2 mmol/L (3.5-5.1); Sodium 139 mmol/L (136-145); Total Bilirubin 0.4 mg/dL (0.15-1.2); Total Protein 7.5 g/dL (6.6-8.7)
[2021-03-19 20:29] VITALS: BP 132/91; PULSE 75; RESP 16; O2SAT 99
--- NOTE | 2021-03-20 03:33 | W.ED.GENADLT ---
HPI - General Adult General: Chief complaint: General Medical Stated complaint: ABNORMAL BLEEDING Time Seen by Provider: 03/19/21 18:26 History of Present Illness: HPI narrative: 40-year-old with a history of renal cell carcinoma. He is undergoing chemotherapy and immunotherapy currently. He presents after having some bright red blood per rectum after hard stool. He also notes bleeding from some skin scratches/lesions that he has recently. He reports headache that was the worst of his life a few days ago which seems to have improved. He was concerned and called his oncologist who asked him to come to the ER for evaluation. He denies any fever. He also denies any bleeding of the gums with teeth brushing, nosebleeds, etc. Onset (ago): day(s) Location: head Radiation: non-radiation Quality: other Pain Consistency: now resolved Associated symptoms: Reports headache(s); Deny chest pain, cough, dyspnea, fevers/chills, nausea or vomiting Review of Systems Const: Denies: fever(s) or chills Card: Denies: chest pain Resp: Denies: dyspnea GI: Denies: nausea or vomiting : Denies: dysuria or hematuria Neuro: Reports: headache(s) PFS ED PFSH: Medical History (Updated 03/19/21 @ 20:18 by John Paul Ceja DO) Closed nondisplaced fracture of fifth left metatarsal bone Diverticulitis of colon Family History Denies family history of Diabetes CAD (coronary artery disease) Clotting disorder Dementia Hyperlipidemia Psychiatric illness Chronic kidney disease (CKD) Suicide Anesthesia complication Bleeding disorder Family history of premature coronary artery disease Lung disease Cancer Hypertension Stroke Social History Smoking and tobacco status: never smoked Second hand smoke exposure: No Smoking risk assessment/counseling performed?: Yes Alcohol intake: never Desire information about alcohol rehabilitation?: No Counseling given: No Desire information about substance/drug rehabilitation?: No Counseling given: No Physical Exam Const: GENERAL APPEARANCE: well developed ORIENTATION/CONSCIOUSNESS: Yes oriented to person, Yes oriented to place and Yes oriented to time HENMT: COMMON NORMALS: normocephalic, external ears normal and Normal external nose present HEAD & SCALP: normocephalic FACE & SINUS: normal facial exam NOSE: Normal external nose present and No nasal discharge present EXTERNAL EAR: Yes external ears normal MOUTH: tongue normal TEETH & GINGIVA: no abnormal tooth and associated gingiva THROAT: posterior oropharynx normal; no peritonsillar mass Eye: COMMON NORMALS: Equal, round and reactive pupils present, EOMs intact bilaterally and conjunctivae normal EYELID: eyelids normal CONJUNCTIVA: Yes conjunctivae normal PUPIL: Yes Equal, round and reactive pupils present Neck/C-Spine: GENERAL: No tracheal deviation Chest: COMMONS NORMALS: normal inspection of the chest CHEST: No tenderness Resp: COMMON NORMALS: clear to auscultation bilaterally EFFORT & INSPECTION: No tachypneic, No respiratory distress, No retractions, No uses accessory muscles and No tracheal deviation AUSCULTATION: clear to auscultation bilaterally, no rhonchi, no wheezes and lung sounds not diminished Cardio: COMMON NORMALS: regular rate and regular rhythm RATE: regular rate RHYTHM: regular rhythm HEART SOUNDS: no murmurs PERIPHERAL PULSES: radial pulses present GI: INSPECTION: No abdominal distension AUSCULTATION: No Hyperactive bowel sounds present and No Hypoactive bowel sounds present PALPATION: No Guarding due to palpation present (GI) and No Rigid due to palpation PERCUSSION: no dullness to percussion and no tympanic to percussion Neuro: SENSORIUM/ORIENTATION: Yes oriented to person, Yes oriented to place and Yes oriented to time Psych: COMMON NORMALS: mental status grossly normal Course Vital Signs: Vital signs: Vital Signs Temperature 97.6 F 03/19/21 18:00 Pulse Rate 75 03/19/21 20:29 Respiratory Rate 16 03/19/21 20:29 Blood Pressure 132/91 03/19/21 20:29 Pulse Oximetry 99 03/19/21 20:29 MDM - General Adult MDM Narrative: Medical decision making narrative: Patient's hemoglobin is 16.6. Platelet count is 214. He is not neutropenic. His laboratory is otherwise benign. I spoke with the oncologist patient relations representative for Dr. Duarte at the [facility] and relayed his laboratory findings. They state no further intervention necessary. Patient is discharged. Lab Data: Labs: Lab Results 03/19/21 03/19/21 03/19/21 Range/Units 18:20 18:20 18:20 WBC 9.1 (4.0-10.0) 10^3/ uL RBC 5.65 H (4.1-5.3) 10^6/u L Hgb 16.6 (11.7-16.6) g/dL Hct 49.6 (42.0-52.0) % MCV 87.8 (80-94) fL MCH 29.4 (28.0-34.0) pg MCHC 33.5 (30.0-36.0) g/dL RDW 12.5 (12.1-15.1) % Plt Count 214 (130-400) 10^3/c mm MPV 11.4 H (7.4-10.4) fL Neut % (Auto) 78.6 % Lymph % (Auto) 12.0 % [place] % (Auto) 7.5 % Eos % (Auto) 1.3 % Baso % (Auto) 0.4 % Neut # (Auto) 7.11 (1.8-7.7) 10^3/u L Lymph # (Auto) 1.1 (0.8-4.8) 10^3/u L [place] # (Auto) 0.7 (0.2-0.9) 10^3/u L Eos # (Auto) 0.1 (0.0-0.8) 10^3/u L Baso # (Auto) 0.0 (0.0-0.1) 10^3/u L Nucleated RBC % (a uto) 0 % Nucleated RBCs # 0.0 /100WBC PT 12.80 (12.1-14.9) SECO NDS INR 0.93 (0.8-1.2) APTT 26.0 (23.9-36.7) SECO NDS Sodium 139 (136-145) mmol/L Potassium 4.2 (3.5-5.1) mmol/L Chloride 100 (98-107) mmol/L Carbon Dioxide 28 (22-29) mmol/L Anion Gap 15.2 (5-19) BUN 15 (6-20) mg/dL Creatinine 1.3 H (0.7-1.2) mg/dL GFR Calculation 61.8 L (90-130) mL/min Glucose 81 (65-115) mg/dL Calculated Osmolal ity 288 (285-295) mOsm/k g Calcium 9.5 (8.5-10.5) mg/dL Magnesium 1.8 (1.7-2.3) mg/dL Total Bilirubin 0.4 (0.15-1.2) mg/dL AST 23 (0-40) U/L ALT 26 (0-41) U/L Alkaline Phosphata se 86 (40-130) IU/L C-Reactive Protein 6.3 H (0.0-4.9) mg/L Total Protein 7.5 (6.6-8.7) g/dL Albumin 4.8 (3.5-5.2) g/dL Globulin 2.7 (1.3-4.6) g/dL Blood Type Rho(D) Type Antibody Screen 03/19/21 Range/Units 18:20 WBC (4.0-10.0) 10^3/ uL RBC (4.1-5.3) 10^6/u L Hgb (11.7-16.6) g/dL Hct (42.0-52.0) % MCV (80-94) fL MCH (28.0-34.0) pg MCHC (30.0-36.0) g/dL RDW (12.1-15.1) % Plt Count (130-400) 10^3/c mm MPV (7.4-10.4) fL Neut % (Auto) % Lymph % (Auto) % [place] % (Auto) % Eos % (Auto) % Baso % (Auto) % Neut # (Auto) (1.8-7.7) 10^3/u L Lymph # (Auto) (0.8-4.8) 10^3/u L [place] # (Auto) (0.2-0.9) 10^3/u L Eos # (Auto) (0.0-0.8) 10^3/u L Baso # (Auto) (0.0-0.1) 10^3/u L Nucleated RBC % (a uto) % Nucleated RBCs # /100WBC PT (12.1-14.9) SECO NDS INR (0.8-1.2) APTT (23.9-36.7) SECO NDS Sodium (136-145) mmol/L Potassium (3.5-5.1) mmol/L Chloride (98-107) mmol/L Carbon Dioxide (22-29) mmol/L Anion Gap (5-19) BUN (6-20) mg/dL Creatinine (0.7-1.2) mg/dL GFR Calculation (90-130) mL/min Glucose (65-115) mg/dL Calculated Osmolal ity (285-295) mOsm/k g Calcium (8.5-10.5) mg/dL Magnesium (1.7-2.3) mg/dL Total Bilirubin (0.15-1.2) mg/dL AST (0-40) U/L ALT (0-41) U/L Alkaline Phosphata se (40-130) IU/L C-Reactive Protein (0.0-4.9) mg/L Total Protein (6.6-8.7) g/dL Albumin (3.5-5.2) g/dL Globulin (1.3-4.6) g/dL Blood Type O Positive Rho(D) Type Positive / 4+ Antibody Screen Negative Discharge Plan Discharge Patient Disposition: Home Clinical Impression: Acute lower gastrointestinal bleeding Condition: Stable Prescriptions: No Action oxycodone 15 mg tablet 15 mg PO BID PRN (Reason: Pain) RF: 0 oxycodone [OxyContin] 40 mg Tablet,Oral Only,Ext.Rel.12 Hr 40 mg PO BID RF: 0 tizanidine 4 mg tablet 4 mg PO Q6H PRN (Reason: MUSCLE CRAMPS) RF: 0 sildenafil (pulm.hypertension) 20 mg tablet See Rx Instructions .ROUTE .COMPLEX RF: 0 Inlyta 5 mg tablet 5 mg PO DAILY RF: 0 Discharge Orders: Discharge ED (Routine); Ordered 03/19/21 Ordered By: John Paul Ceja Referrals: Celestino Hurst DO [Primary Care Provider] - 1-3 days Discharge Diet: Advance as tolerated Discharge Activity: Increase activity as tolerated Patient Instructions: Rectal Bleeding (ED) Activity Restrictions/Additional Instructions: Return for worsening bleeding, headaches, mental status changes, dizziness, or passing out. Return for any other concerns. Coding Level of Care Code ED Program Facilitator for Jose Fletcher
== END 2021-03-19 20:33 | disposition home or self-care (01) ==
PROVIDERS: Emergency Provider Emergency Medicine; PCP Family Medicine
DX: K92.2 Gastrointestinal hemorrhage, unspecified (principal); Z85.528 Personal history of other malignant neoplasm of kidney; Z79.899 Other long term (current) drug therapy
CPT/HCPCS: 70450; 80053; 83735; 85025; 85610; 85730; 86140; 86850; 86900; 99283

== ENCOUNTER 2021-09-10 13:43 | Emergency (ER) | payer MEDICARE, OTHER, SELFPAY ==
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
[2021-09-10 14:24] VITALS: BP 128/85; PULSE 87; RESP 18; TEMP 37; O2SAT 99
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
[2021-09-10 14:53] VITALS: PULSE 86
[2021-09-10 16:03] VITALS: BP 124/85; PULSE 73; RESP 16; TEMP 36.9; O2SAT 98
== END 2021-09-10 16:09 | disposition home or self-care (01) ==
PROVIDERS: Emergency Provider Physician Assistant; PCP Family Medicine
DX: M25.561 Pain in right knee (principal); S13.4XXA Sprain of ligaments of cervical spine, initial encounter; M54.9 Dorsalgia, unspecified; V89.2XXA Person injured in unspecified motor-vehicle accident, traffic, initial encounter
CPT/HCPCS: 70450; 72125; 72128; 72131; 73562; 99283; E0114

== ENCOUNTER 2021-10-04 15:27 | Outpatient (CLI) | payer MEDICARE, OTHER, SELFPAY ==
--- NOTE | 2021-10-04 16:00 | MR_ITS ---
WS: [id number] MRI RIGHT KNEE HISTORY: INSTABILITY OF RIGHT KNEE JOINT COMPARISON: 09/10/2021 Anterior cruciate ligament: Intact. Posterior cruciate ligament: Intact. Medial collateral ligament: Intact. Posterior lateral corner structures: Intact. Medial menisci: Horizontal tear posterior horn extends to the inferior articular surface. Increased s ignal is most prominent at the free edge. Anterior horn is normal. Lateral meniscus: Intact. Normal signal, size and shape. Extensor mechanism: Distal quadriceps tendon and patellar tendons are intact. Fluid and soft tissue: Small suprapatellar joint effusion. No Storm's cyst. Osseous and articular structures: Patellofemoral compartment: Normal. Medial compartment: No marrow edema or fracture. Lateral compartment: Focal increased signal in the cartilage along the tibial plateau adjacent to the tibial spine. MR/MR knee RT wo con* [id number] IMPRESSION: 1. No acute fracture. 2. Horizontal tear posterior horn medial meniscus. Tear extends to the inferio r articular surface towards the free edge. 3. Small suprapatellar joint effusion. 4. Increased signal in the cartilage along the lateral tibial plateau adjacent to the tibial spine. May be an area of focal contusion, no full-thickness cart ilage defect.
== END 2021-10-04 15:28 | disposition home or self-care (01) ==
PROVIDERS: PCP Family Medicine; Visit Provider Family Medicine
DX: M25.361 Other instability, right knee (principal); S83.241A Other tear of medial meniscus, current injury, right knee, initial encounter; X58.XXXA Exposure to other specified factors, initial encounter; M25.461 Effusion, right knee
CPT/HCPCS: 73721

== ENCOUNTER → 2023-09-14 11:50 | Outpatient (BNVA) | payer MEDICARE, OTHER, SELFPAY | PROVIDERS: PCP Family Medicine; Visit Provider Family Medicine | DX: R06.00 Dyspnea, unspecified (principal); C64.9 Malignant neoplasm of unspecified kidney, except renal pelvis; R53.83 Other fatigue; F11.90 Opioid use, unspecified, uncomplicated; R79.89 Other specified abnormal findings of blood chemistry | CPT/HCPCS: 82040; 84270; 84403; 86618; 86666; 86757 ==

== ENCOUNTER → 2023-09-19 10:24 | Outpatient (BNVA) | payer MEDICARE, OTHER, SELFPAY | PROVIDERS: PCP Family Medicine; Referring Provider Family Medicine; Visit Provider Internal Medicine | DX: R06.00 Dyspnea, unspecified (principal) | CPT/HCPCS: 93005 ==

== ENCOUNTER → 2024-03-14 14:59 | Outpatient (BNVA) | payer MEDICARE, OTHER, SELFPAY | PROVIDERS: PCP Family Medicine; Visit Provider Family Medicine | DX: R79.89 Other specified abnormal findings of blood chemistry (principal) | CPT/HCPCS: 82040; 84270; 84403 ==

== ENCOUNTER 2024-05-20 11:09 | Emergency (ER) | payer MEDICARE, OTHER, SELFPAY ==
[2024-05-20 11:13] VITALS: BP 172/96; PULSE 105; RESP 18; TEMP 36.9; O2SAT 100; BMI 29.8
--- NOTE | 2024-05-20 11:29 | CTR_ITS ---
PROCEDURE INFORMATION: Exam: CT Lumbar Spine Without Contrast Exam date and time: 05/20/2024 11:59 AM Age: 44 years old Clinical indication: Other: Mid back pain; Prior surgery; Surgery date: 6+ months; Surgery type: Back surgery 3 months ago; Patient HX: HX of kidney cancer with mets to bone; Additional info: Mid back pain, history of cancer and surgry TECHNIQUE: Imaging protocol: Computed tomography of the lumbar spine without contrast. Radiation optimization: All CT scans at this facility use at least one of these dose optimization techniques: automated exposure control; mA and/or kV adjustment per patient size (includes targeted exams where dose is matched to clinical indication); or iterative reconstruction. COMPARISON: CT lumbar spine wo con* [id number] 09/10/2021 2:38 PM RADIATION DOSE METRICS: Total DLP (mGy-cm): 1347.71 FINDINGS: Bones/joints: Status post spinal fusion of T8 through L5 with posterior decompression of T10 through T12. Screws are seen in the right iliac bone. Hardware is intact. Progressive lytic destruction of L3 with new lytic lesions involving T10 through L1. Soft tissues: Unremarkable. CT/CT lumbar spine wo con* [id number] IMPRESSION: Progressive lytic destruction of L3 with new lytic lesions involving T10 through L1.
--- NOTE | 2024-05-20 11:30 | CTR_ITS ---
PROCEDURE INFORMATION: Exam: CT Thoracic Spine Without Contrast Exam date and time: 05/20/2024 11:59 AM Age: 44 years old Clinical indication: Pain in thoracic spine; Prior surgery; Surgery date: 1-6 months; Surgery type: Back surgery 3 months ago; Patient HX: HX of kidney cancer with mets to bone; Additional info: Mid back pain, history of cancer and surgry TECHNIQUE: Imaging protocol: Computed tomography of the thoracic spine without contrast. Radiation optimization: All CT scans at this facility use at least one of these dose optimization techniques: automated exposure control; mA and/or kV adjustment per patient size (includes targeted exams where dose is matched to clinical indication); or iterative reconstruction. COMPARISON: CT thoracic spin wo con* [id number] 09/10/2021 2:36 PM RADIATION DOSE METRICS: Total DLP (mGy-cm): 1347.71 FINDINGS: Bones/joints: Status post spinal fusion of T8 through L5 with posterior decompression of T10 through T12. Hardware is intact. Progressive lytic destruction of T11 with new lytic lesions involving T10 and L1. Soft tissues: Unremarkable. Lymph nodes: Increased size of subcarinal lymph node measuring 2.7 cm in short axis, previously 1.4 cm. Calcified right hilar lymph nodes and bilateral pulmonary granuloma, likely sequela of prior granulomatous disease. Pleural spaces: Trace bilateral pleural effusions. CT/CT thoracic spin wo con* [id number] IMPRESSION: 1. Progressive lytic destruction of T11 with new lytic lesions involving T10 and L1. 2. Increased size of subcarinal lymph node, concerning for progressive metastatic disease.
[2024-05-20 11:31] VITALS: BP 148/88; PULSE 110; RESP 16; O2SAT 99
--- NOTE | 2024-05-20 11:49 | W.ED.BACK ---
HPI - Back Pain/Injury General: Chief Complaint: Back Pain/Injury Stated Complaint: back pain Time Seen by Provider: 05/20/24 11:22 History of Present Illness: 44-year-old male with a history of renal cell carcinoma that is spread to his spine. He has had multiple back surgeries. He follows a [facility]. He says over the last few days he has had some worsening pain. He feels like there is a swelling above his spine mid back/low thoracic area. He said this morning he woke up pain was much worse so he came to the emergency room. He did not feel like he could go all the way to [facility]. No saddle numbness, no urinary retention or incontinence, no focal motor deficit, no sensory deficit. no recent fever. no cough. no shortness of breath. no chest pain. no abdominal pain. no nausea or vomiting. no dysuria. no altered mental status. no edema. Review of Systems Narrative: Constitutional symptoms: Negative except as documented in HPI. Skin symptoms: Negative except as documented in HPI. Eye symptoms: Negative except as documented in HPI. ENMT symptoms: Negative except as documented in HPI. Respiratory symptoms: Negative except as documented in HPI. Cardiovascular symptoms: Negative except as documented in HPI. Gastrointestinal symptoms: Negative except as documented in HPI. Genitourinary symptoms: Negative except as documented in HPI. Musculoskeletal symptoms: Negative except as documented in HPI. Neurologic symptoms: Negative except as documented in HPI. Psychiatric symptoms: Negative except as documented in HPI. Endocrine symptoms: Negative except as documented in HPI. [facility] ED PFSH: Medical History (Updated 05/20/24 @ 13:06 by Estefania Kay MD) Closed nondisplaced fracture of fifth left metatarsal bone Diverticulitis of colon Family History Denies family history of Diabetes CAD (coronary artery disease) Clotting disorder Dementia Hyperlipidemia Psychiatric illness Chronic kidney disease (CKD) Suicide Anesthesia complication Bleeding disorder Family history of premature coronary artery disease Lung disease Cancer Hypertension Stroke Social History Smoking and tobacco/nicotine status: never used tobacco/nicotine Second hand smoke exposure: No Alcohol intake: never Substance/Drug Use: never Physical Exam Narrative: EXAM NARRATIVE: General: Alert, no acute distress. Head: Normocephalic Neck: Trachea midline Eye: Extraocular movements are intact. Ears, nose, mouth and throat: Oral mucosa moist Respiratory: Respirations are non-labored Musculoskeletal: Normal ROM Back: no step off, there is an area of the lower thoracic that is tender. Possibly some swelling in this area. No warmth or redness. Neurological: Alert and oriented to person, place, time, and situation, No focal neurological deficit observed. Psychiatric: Cooperative, appropriate mood & affect. Course Vital Signs: Vital signs: Vital Signs Temperature 98.4 F 05/20/24 11:13 Pulse Rate 79 05/20/24 13:00 Respiratory Rate 18 05/20/24 12:50 Blood Pressure 134/71 05/20/24 13:00 Pulse Oximetry 94 05/20/24 13:00 Oxygen Delivery Me thod Room Air 05/20/24 13:00 MDM - Back Pain/Injury Medical Decision Making CT of the thoracic spine without contrast: Progressive metastatic disease. See read below. This was reviewed and interpreted by myself the emergency room physician. I also reviewed the radiology report. Assessment and plan: Back pain Thoracic spine metastatic disease Renal cell carcinoma - Discharged home - Discussed plan with patient. Answered any questions. - Evaluation and treatment of this problem were appropriate in the emergency setting. Labs Radiology Impressions Thoracic Spine CT 05/20/24 11:30 IMPRESSION: 1. Progressive lytic destruction of T11 with new lytic lesions involving T10 and L1. 2. Increased size of subcarinal lymph node, concerning for progressive metastatic disease. All radiology interpretation(s) finalized by discharge Discharge Plan Discharge Patient Disposition: Home Clinical Impression: Metastasis to spinal column, Renal cell cancer Condition: Stable Prescriptions: No Action oxycodone 15 mg tablet 15 mg PO BID PRN (Reason: Pain) (DME) insulin syringe-needle U-100 1 mL 27 gauge x 1/2 syringe See Rx Instructions .Route Qty: 50 1RF Rx Instructions: As directed testosterone cypionate 200 mg/mL oil 100 mg SUBCUT Q7D Qty: 10 3RF methylphenidate HCl [Ritalin] 10 mg tablet 10 mg PO BID 30 Days Qty: 60 0RF tizanidine 4 mg tablet 4 mg PO Q6H PRN (Reason: MUSCLE CRAMPS) methocarbamol 500 mg tablet 500 mg PO TID sennosides-docusate sodium [Senexon-S] 8.6-50 mg tablet 2 tab PO BID gabapentin 300 mg capsule 300 mg PO Q8H everolimus (antineoplastic) 5 mg tablet 5 mg PO DAILY OxyContin 20 mg tablet,oral only,ext.rel.12 hr 40 mg PO Q12H Lenvima 18 mg/day (10 mg x 1-4 mg x2) capsule 18 mg PO TID Welireg 40 mg tablet 40 mg PO TID Discharge Orders: Discharge ED (Routine); Ordered 05/20/24 Ordered By: Estefania Kay Referrals: Celestino Hurst DO [Primary Care Provider] - Discharge Diet: Usual diet Discharge Activity: Increase activity as tolerated Patient Instructions: Opioid Safety, Pain Management Activity Restrictions/Additional Instructions: Thank you for choosing [facility] for your healthcare needs today. Please realize this is an emergency room and that we are providing you with a medical screening exam and this may not be complete and all inclusive of all the testing and or work up that you may need to determine your ailment or severity of your illness. You have been screened and evaluated and felt safe for discharge. Health conditions do change or evolve sometimes and as such it is important that you follow up with your Primary Doctor to be re checked, 3-5 days is a general good time frame for follow up. You are always welcome to return to the ED for re assessment if your symptoms are worsening or you have new concerns Coding Level of Care Code ED Corporate Travel Coordinator for Jose Fletcher
[2024-05-20 12:00] VITALS: PULSE 106; O2SAT 98
[2024-05-20 12:50] VITALS: BP 117/69; PULSE 83; RESP 18; O2SAT 97
[2024-05-20 13:00] VITALS: BP 134/71; PULSE 79; O2SAT 94
[2024-05-20 13:11] VITALS: BP 134/71; PULSE 79; RESP 16; O2SAT 99
== END 2024-05-20 13:15 | disposition home or self-care (01) ==
PROVIDERS: Emergency Provider Emergency Medicine; PCP Family Medicine
DX: C64.9 Malignant neoplasm of unspecified kidney, except renal pelvis (principal); C79.51 Secondary malignant neoplasm of bone
CPT/HCPCS: 72128; 72131; 99284

== ENCOUNTER 2024-06-15 13:19 | Emergency (ER) | payer MEDICARE, OTHER, SELFPAY ==
[2024-06-15 13:20] VITALS: BP 152/94; PULSE 109; RESP 16; O2SAT 99; BMI 29.1
[2024-06-15 13:30] VITALS: BP 152/94; PULSE 109; RESP 16; O2SAT 99
--- NOTE | 2024-06-15 13:33 | W.ED.EXTPRO ---
HPI - Extremity Problem General: Chief complaint: Extremity Problem,Nontraumatic Stated complaint: Unable to ambulate Time Seen by Provider: 06/15/24 13:21 History of Present Illness: 44-year-old man with a history of renal cell carcinoma with metastatic disease to his spine. He has had numerous spinal surgeries. Most recently he has been having issues with fluid buildup in his spine and has been having fluid drained from his spine secondary to it causing weakness in his legs. He says today he worked up and worse pain than normally and cannot move his right leg or feel his right leg at all. He is having some weakness in his left leg as well. He says he has not been able to have bowel movements. He says he has been able to urinate but that has been difficult at times as well. Review of Systems Narrative: Constitutional symptoms: Negative except as documented in HPI. Skin symptoms: Negative except as documented in HPI. Eye symptoms: Negative except as documented in HPI. ENMT symptoms: Negative except as documented in HPI. Respiratory symptoms: Negative except as documented in HPI. Cardiovascular symptoms: Negative except as documented in HPI. Gastrointestinal symptoms: Negative except as documented in HPI. Genitourinary symptoms: Negative except as documented in HPI. Musculoskeletal symptoms: Negative except as documented in HPI. Neurologic symptoms: Negative except as documented in HPI. Psychiatric symptoms: Negative except as documented in HPI. Endocrine symptoms: Negative except as documented in HPI. [facility] ED PFSH: Medical History (Updated 06/15/24 @ 14:48 by Estefania Kay MD) Closed nondisplaced fracture of fifth left metatarsal bone Diverticulitis of colon Family History Denies family history of Diabetes CAD (coronary artery disease) Clotting disorder Dementia Hyperlipidemia Psychiatric illness Chronic kidney disease (CKD) Suicide Anesthesia complication Bleeding disorder Family history of premature coronary artery disease Lung disease Cancer Hypertension Stroke Social History Smoking and tobacco/nicotine status: never used tobacco/nicotine Second hand smoke exposure: No Alcohol intake: never Substance/Drug Use: never Physical Exam Narrative: EXAM NARRATIVE: General: Alert, no acute distress. Skin: Warm, dry. Head: Normocephalic, atraumatic. Neck: Supple, trachea midline. Eye: Extraocular movements are intact. Ears, nose, mouth and throat: mucosa moist. Cardiovascular: Regular, Normal peripheral perfusion. Respiratory: Lungs are clear to auscultation, respirations are non-labored, breath sounds are equal, Symmetrical chest wall expansion. Gastrointestinal: Soft, Nontender, Non distended Musculoskeletal: Normal ROM, no deformity. Neurological: Alert and oriented, diminished reflexes, diminished sensation and no movement, flaccidity of his right leg. Decreased strength in his left leg. He still does have sensation and reflexes. Psychiatric: Cooperative, appropriate mood & affect. Course Vital Signs: Vital signs: Vital Signs Pulse Rate 109 H 06/15/24 13:30 Respiratory Rate 16 06/15/24 13:30 Blood Pressure 152/94 06/15/24 13:30 Pulse Oximetry 99 06/15/24 13:30 MDM - Extremity (Nontraumatic) Medical Decision Making I have not initiated any workup at this time. It seems that this is similar but worsening of what he has been being treated for at [place]. They immediately initiated transfer to [place] upon the patient's arrival. Given the rapid onset of symptoms this time I feel the patient warrants being flown. Consultation. I spoke with Dr. Avilez on the phone he is orthospine who has been taking care of the patient. He recommends a transfer to the emergency room and an MRI of the entire spine when he arrives. Consultation: I spoke with Dr. Bagley in the emergency room at [facility] and he is excepted the patient to the emergency room. Assessment and plan: Metastatic renal carcinoma Spinal metastasis Right leg paralysis -IV Decadron in the emergency room. -Patient transferred to [facility] in [place]. -Patient has paralysis and has being followed and treated for [facility] and [place] at [place]. He requires transfer. This has progressed very rapidly so I feel he needs transferred by air ambulance. This was requested also by the accepting physician. - Discussed plan with patient. Answered any questions. - Evaluation and treatment of this problem were appropriate in the emergency setting. No radiology studies performed this visit Discharge Plan Discharge Patient Disposition: Xfer Short-Term Hosp Clinical Impression: Metastasis of neoplasm to spinal canal, Paralysis of right lower extremity Condition: Stable Referrals: Celestino Hurst DO [Primary Care Provider] - Coding Level of Care Code ED Career Development Coordinator/Teacher for Jose Fletcher
--- NOTE | 2024-06-15 15:34 | CTR_ITS ---
PROCEDURE INFORMATION: Exam: CT Lumbar Spine With Contrast Exam date and time: 06/15/2024 4:36 PM Age: 44 years old Clinical indication: Low back pain; Prior surgery; Surgery date: 1-6 months; Additional info: Paralysis, known metastatic spine disease TECHNIQUE: Imaging protocol: Computed tomography of the lumbar spine with contrast. Radiation optimization: All CT scans at this facility use at least one of these dose optimization techniques: automated exposure control; mA and/or kV adjustment per patient size (includes targeted exams where dose is matched to clinical indication); or iterative reconstruction. Contrast material: OMNI 350; Contrast volume: 60 ml; Contrast route: INTRAVENOUS (IV); COMPARISON: CT lumbar spine wo con* [id number] 05/20/2024 11:59 AM RADIATION DOSE METRICS: Total DLP (mGy-cm): 782.5 FINDINGS: Bones/joints: Posterior spinal fusion of T8 through L5 with posterior decompression of T10 through T12. No evidence of hardware failure. Lytic lesions involving the posterior cortex of T12 and L1. Similar appearance of a mixed lytic lesion of L3 with associated compression deformity and approximately 40% vertebral body height loss. 2 mm of retropulsion of the vertebral body into the spinal canal. Mixed lytic lesion involving the right iliac bone. Hardware overlies the right sacroiliac joint. Kidneys and ureters: There is a 1.1 cm lesion within the inferior pole of the right kidney. Soft tissues: Hypoattenuating collection within the paravertebral midline soft tissues with surrounding edema similar compared to prior CT scan May 20, 2024. CT/CT lumbar spine w con [id number] IMPRESSION: Posterior spinal fusion of T8 through L5 without evidence of hardware failure. Similar appearance of lytic lesions involving the thoracic and lumbar spine compared to prior CT scan May 20, 2024. Unchanged collection within the paravertebral midline soft tissues with surrounding edema.
--- NOTE | 2024-06-15 15:34 | CTR_ITS ---
PROCEDURE INFORMATION: Exam: CT Thoracic Spine With Contrast Exam date and time: 06/15/2024 4:36 PM Age: 44 years old Clinical indication: Numbness and weakness; Prior surgery; Surgery date: 6+ months; Surgery type: T and L spine fusion; Additional info: Paralysis, known metastatic disease of the spine. TECHNIQUE: Imaging protocol: Computed tomography of the thoracic spine with contrast. Radiation optimization: All CT scans at this facility use at least one of these dose optimization techniques: automated exposure control; mA and/or kV adjustment per patient size (includes targeted exams where dose is matched to clinical indication); or iterative reconstruction. Contrast material: OMNIPAQUE 350; Contrast volume: 60 ml; Contrast route: INTRAVENOUS (IV); COMPARISON: CT thoracic spin wo con* [id number] 05/20/2024 11:59 AM RADIATION DOSE METRICS: Total DLP (mGy-cm): 782.5 FINDINGS: Bones/joints: Status post spinal fusion of T8 through L5 with posterior decompression of T10 through T12. No periprosthetic fractures or evidence of hardware failure. Lytic lesion involving the right pedicle of T10, the T11 vertebral body extending to the bilateral posterior elements, and the T12 vertebral body with destruction of the posterior cortex. Unchanged deformity of the superior endplate of T12. Soft tissues: Unremarkable. CT/CT thoracic spine w con [id number] IMPRESSION: Posterior spinal fusion hardware in place without evidence of hardware failure. Mixed lytic lesions of the thoracic and lumbar spine are similar compared to prior CT scan May 20, 2024.
[2024-06-15] MEDS: dexamethasone 10 mg/mL INJ IVP (15:46)
[2024-06-15 16:04] LABS: Basophils % 0.4 %; Eosinophils # 0.2 10^3/uL (0.0-0.8); Eosinophils % 1.6 %; Hematocrit 36.8 % (37-53); Lymphocytes % 9.7 %; Mean Corpuscular HGB Conc 30.2 g/dL (30-55); Mean Corpuscular Hemoglobin 23.7 pg (27-33); Mean Corpuscular Volume 78.6 fl (82-101); Mean Platelet Volume 9.8 fL (7.4-10.4); Monocytes % 9.7 %; Neutrophils # 7.79 10^3/uL (1.8-7.7); Neutrophils % 78.3 %; Nucleated Red Blood Cells % 0 %; Platelet Count 240 10^3/cmm (157-399); Red Blood Count 4.68 10^6/uL (3.85-5.65); White Blood Count 9.94 10^3/uL (3.29-11.43)
[2024-06-15 16:06] LABS: Erythrocyte Sedimentation Rate 67 mm/hr (0-10)
[2024-06-15 16:24] LABS: Alanine Aminotransferase 52 U/L (0-41); Albumin Level 3.5 g/dL (3.5-5.2); Alkaline Phosphatase 92 U/L (40-130); Anion Gap 16.5 (5-19); Aspartate Amino Transferase 26 U/L (0-40); Blood Urea Nitrogen 16 mg/dL (6-20); C Reactive Protein 120.2 mg/L (0.0-4.9); Calcium 9.2 mg/dL (8.5-10.5); Carbon Dioxide 26 mmol/L (22-29); Chloride 102 mmol/L (98-107); Creatinine Clr Calc Pharmacy 116.4686; Globulin 3.3 g/dL (1.3-4.6); Glomerular Filtration Rate 81.9 mL/min (90-130); Glucose 102 mg/dL (65-115); Osmolality Calculated 291 mOsm/kg (285-295); Potassium 4.5 mmol/L (3.5-5.1); Sodium 140 mmol/L (136-145); Total Bilirubin 0.4 mg/dL (0.15-1.2); Total Protein 6.8 g/dL (6.6-8.7)
[2024-06-15] MEDS: iohexol 350 mg/mL 500 mL Btl (per mL) IV ×2 (16:39→16:40)
[2024-06-15 16:55] VITALS: BP 120/80; PULSE 75; O2SAT 98
== END 2024-06-15 16:56 | disposition short-term general hospital (02) ==
PROVIDERS: Emergency Provider Emergency Medicine; PCP Family Medicine
DX: G83.11 Monoplegia of lower limb affecting right dominant side (principal); C79.51 Secondary malignant neoplasm of bone; Z85.528 Personal history of other malignant neoplasm of kidney
CPT/HCPCS: 36415; 72129; 72132; 80053; 85025; 85651; 86140; 96374; 99285; J1100; Q9967

== ENCOUNTER 2024-07-15 13:05 | Outpatient (CLI) | payer MEDICARE, OTHER, SELFPAY ==
[2024-07-15 13:20] LABS: Charge for UA Resulting for Rev
[2024-07-15 13:26] LABS: Bilirubin Urine Negative (Negative); Blood Urine 1+ (Negative); Glucose Urine UA Negative (Normal); Ketones Urine Negative (Negative); Leukocyte Esterase Urine 3+ (Negative); Nitrate Urine Positive (Negative); Protein Urine Trace (Negative); Specific Gravity, Urine 1.007 (1.005-1.030); Urine Appearance Cloudy (CLEAR); Urine Color Yellow (Yellow); Urobilinogen Urine 0.2 mg/dL (Negative); pH Urine 5.5 (5-7)
[2024-07-15 13:46] LABS: UA Manual Slide Review YES; UA Slide Review UA Slide Review Perf
[2024-07-15 13:47] LABS: Add Urine Culture? No; Bacteria Urine 4+ /hpf; Mucus Urine 1+ /hpf; Oval Fat Bodies Urine 1+ /hpf; Squamous Epithelial Cell Urine 0-4 /hpf (0-5); WBC Urine >100 /hpf (0-5)
== END 2024-07-15 13:06 | disposition home or self-care (01) ==
PROVIDERS: PCP Family Medicine; Visit Provider Family Medicine
DX: C64.2 Malignant neoplasm of left kidney, except renal pelvis (principal)
CPT/HCPCS: 81003; 81015; 87086

== ENCOUNTER → 2024-08-29 13:48 | Outpatient (BNVA) | payer MEDICARE, OTHER, SELFPAY | PROVIDERS: PCP Family Medicine; Visit Provider Thoracic Surgery (Cardiothoracic Vascular Surgery) | DX: I96 Gangrene, not elsewhere classified (principal); L89.892 Pressure ulcer of other site, stage 2 | CPT/HCPCS: 99213; A6220 ==

== ENCOUNTER → 2024-09-05 14:16 | Outpatient (BNVA) | payer MEDICARE, OTHER, SELFPAY | PROVIDERS: PCP Family Medicine; Visit Provider Thoracic Surgery (Cardiothoracic Vascular Surgery) | DX: I96 Gangrene, not elsewhere classified (principal); L89.222 Pressure ulcer of left hip, stage 2 | CPT/HCPCS: 99213; A6220 ==

== ENCOUNTER → 2024-09-12 13:09 | Outpatient (BNVA) | payer MEDICARE, OTHER, SELFPAY | PROVIDERS: PCP Family Medicine; Visit Provider Thoracic Surgery (Cardiothoracic Vascular Surgery) | DX: I96 Gangrene, not elsewhere classified (principal); L89.212 Pressure ulcer of right hip, stage 2 | CPT/HCPCS: 11042 ==

== ENCOUNTER → 2024-09-25 15:03 | Outpatient (BNVA) | payer MEDICARE, OTHER, SELFPAY | PROVIDERS: PCP Family Medicine; Visit Provider Thoracic Surgery (Cardiothoracic Vascular Surgery) | DX: I96 Gangrene, not elsewhere classified (principal); L89.212 Pressure ulcer of right hip, stage 2 | CPT/HCPCS: 11042; 11045; A6248 ==

== ENCOUNTER → 2024-10-02 15:15 | Outpatient (BNVA) | payer MEDICARE, OTHER, SELFPAY | PROVIDERS: PCP Family Medicine; Visit Provider Thoracic Surgery (Cardiothoracic Vascular Surgery) | DX: I96 Gangrene, not elsewhere classified (principal); L89.212 Pressure ulcer of right hip, stage 2 | CPT/HCPCS: 11042; A6237; A6250 ==

== ENCOUNTER → 2024-10-11 11:03 | Outpatient (BNVA) | payer MEDICARE, OTHER, SELFPAY | PROVIDERS: PCP Family Medicine; Visit Provider Thoracic Surgery (Cardiothoracic Vascular Surgery) | DX: I96 Gangrene, not elsewhere classified (principal); L89.212 Pressure ulcer of right hip, stage 2 | CPT/HCPCS: 11042; 11045; 97605 ==

== ENCOUNTER → 2024-10-15 15:09 | Outpatient (BNVA) | payer MEDICARE, OTHER, SELFPAY | PROVIDERS: PCP Family Medicine; Visit Provider Thoracic Surgery (Cardiothoracic Vascular Surgery) | DX: I96 Gangrene, not elsewhere classified (principal); L89.212 Pressure ulcer of right hip, stage 2 | CPT/HCPCS: 11042; 11045; 97605; A6237; A6248; A6250 ==

== ENCOUNTER → 2024-10-22 10:58 | Outpatient (BNVA) | payer MEDICARE, OTHER, SELFPAY | PROVIDERS: PCP Family Medicine; Referring Provider Family Medicine; Visit Provider Psychiatry & Neurology Neurology | DX: C79.51 Secondary malignant neoplasm of bone (principal); C64.9 Malignant neoplasm of unspecified kidney, except renal pelvis; M62.838 Other muscle spasm; R20.2 Paresthesia of skin; M47.14 Other spondylosis with myelopathy, thoracic region; G83.10 Monoplegia of lower limb affecting unspecified side | CPT/HCPCS: 11042; 11045; 97605; 99203; A6237; A6250 ==

== ENCOUNTER → 2024-10-29 15:40 | Outpatient (BNVA) | payer MEDICARE, OTHER, SELFPAY | PROVIDERS: PCP Family Medicine; Visit Provider Thoracic Surgery (Cardiothoracic Vascular Surgery) | DX: I96 Gangrene, not elsewhere classified (principal); L89.213 Pressure ulcer of right hip, stage 3 | CPT/HCPCS: 11042; 11045; 97605; A6237; A6248; A6250 ==

== ENCOUNTER → 2024-11-15 10:43 | Outpatient (BNVA) | payer MEDICARE, OTHER, SELFPAY | PROVIDERS: PCP Family Medicine; Visit Provider Thoracic Surgery (Cardiothoracic Vascular Surgery) | DX: I96 Gangrene, not elsewhere classified (principal); L89.213 Pressure ulcer of right hip, stage 3 | CPT/HCPCS: 11042; 11045; 97605; A6237; A6250 ==

== ENCOUNTER → 2024-11-18 13:15 | Outpatient (BNVA) | payer MEDICARE, OTHER, SELFPAY | PROVIDERS: PCP Family Medicine; Visit Provider Thoracic Surgery (Cardiothoracic Vascular Surgery) | DX: I96 Gangrene, not elsewhere classified (principal); L89.213 Pressure ulcer of right hip, stage 3 | CPT/HCPCS: 11042; 11045; A6237; A6250 ==

== ENCOUNTER 2024-11-19 16:05 | Outpatient (CLI) | payer MEDICARE, OTHER, SELFPAY ==
[2024-11-19 16:22] LABS: Bilirubin Urine Negative (Negative); Blood Urine Non-haemolysed trace (Negative); Glucose Urine UA Negative (Normal); Ketones Urine Negative (Negative); Leukocyte Esterase Urine 3+ (Negative); Nitrate Urine Positive (Negative); Protein Urine 1+ (Negative); Specific Gravity, Urine 1.013 (1.005-1.030); Urine Appearance Turbid (CLEAR); Urine Color Yellow (Yellow); Urobilinogen Urine 0.2 mg/dL (Negative)
[2024-11-19 16:27] LABS: Bacteria Urine 4+ /hpf; Hyaline Casts Urine 28.13 /lpf; Squamous Epithelial Cell Urine 0-5 /hpf (0-5); WBC Urine >100 /hpf (0-5)
[2024-11-19 16:40] LABS: Add Urine Culture? No; Amorphous Sediment Urine 1+ /hpf; UA Slide Review UA Slide Review Perf
== END 2024-11-19 16:06 | disposition home or self-care (01) ==
PROVIDERS: PCP Family Medicine; Visit Provider Clinical Nurse Specialist Adult Health
DX: N39.0 Urinary tract infection, site not specified (principal)
CPT/HCPCS: 81001; 87086

== ENCOUNTER → 2024-11-25 13:26 | Outpatient (BNVA) | payer MEDICARE, OTHER, SELFPAY | PROVIDERS: PCP Family Medicine; Visit Provider Thoracic Surgery (Cardiothoracic Vascular Surgery) | DX: I96 Gangrene, not elsewhere classified (principal); L89.213 Pressure ulcer of right hip, stage 3 | CPT/HCPCS: 11042; 11045; A6220; A6248 ==

== ENCOUNTER → 2024-11-28 13:32 | Outpatient (BNVA) | payer MEDICARE, OTHER, SELFPAY | PROVIDERS: PCP Family Medicine; Visit Provider Orthopaedic Surgery | DX: M54.50 Low back pain, unspecified (principal); M47.14 Other spondylosis with myelopathy, thoracic region; Z09 Encounter for follow-up examination after completed treatment for conditions other than malignant neoplasm; C79.51 Secondary malignant neoplasm of bone | CPT/HCPCS: 72072; 72100; 99204 ==

== ENCOUNTER → 2024-12-02 13:27 | Outpatient (BNVA) | payer MEDICARE, OTHER, SELFPAY | PROVIDERS: PCP Family Medicine; Visit Provider Thoracic Surgery (Cardiothoracic Vascular Surgery) | DX: I96 Gangrene, not elsewhere classified (principal); L89.213 Pressure ulcer of right hip, stage 3 | CPT/HCPCS: 11042; 11045; 97605; A6237; A6248; A6250 ==

== ENCOUNTER → 2024-12-09 13:46 | Outpatient (BNVA) | payer MEDICARE, OTHER, SELFPAY | PROVIDERS: PCP Family Medicine; Visit Provider Thoracic Surgery (Cardiothoracic Vascular Surgery) | DX: L89.213 Pressure ulcer of right hip, stage 3 (principal); I96 Gangrene, not elsewhere classified; L89.892 Pressure ulcer of other site, stage 2 | CPT/HCPCS: 11042; 87070; 87176; 87205; 97597; A6220; A6248 ==

== ENCOUNTER → 2024-12-16 13:30 | Outpatient (BNVA) | payer MEDICARE, OTHER, SELFPAY | PROVIDERS: PCP Family Medicine; Visit Provider Thoracic Surgery (Cardiothoracic Vascular Surgery) | DX: I96 Gangrene, not elsewhere classified (principal); L89.213 Pressure ulcer of right hip, stage 3; L89.892 Pressure ulcer of other site, stage 2 | CPT/HCPCS: 11043; 97597; 97605; A6212; A6237; A6250 ==

== ENCOUNTER → 2024-12-19 15:25 | Outpatient (BNVA) | payer MEDICARE, OTHER, SELFPAY | PROVIDERS: PCP Family Medicine; Visit Provider Thoracic Surgery (Cardiothoracic Vascular Surgery) | DX: L89.213 Pressure ulcer of right hip, stage 3 (principal); G82.21 Paraplegia, complete | CPT/HCPCS: 97605; A6237; A6250 ==

== ENCOUNTER → 2024-12-23 13:25 | Outpatient (BNVA) | payer MEDICARE, OTHER, SELFPAY | PROVIDERS: PCP Family Medicine; Visit Provider Thoracic Surgery (Cardiothoracic Vascular Surgery) | DX: I96 Gangrene, not elsewhere classified (principal); L89.213 Pressure ulcer of right hip, stage 3; L89.892 Pressure ulcer of other site, stage 2 | CPT/HCPCS: 11043; 97605; A6237; A6250 ==

== ENCOUNTER → 2024-12-30 13:41 | Outpatient (BNVA) | payer MEDICARE, OTHER, SELFPAY | PROVIDERS: PCP Family Medicine; Visit Provider Thoracic Surgery (Cardiothoracic Vascular Surgery) | DX: I96 Gangrene, not elsewhere classified (principal); L89.213 Pressure ulcer of right hip, stage 3; L89.892 Pressure ulcer of other site, stage 2 | CPT/HCPCS: 11043; A6446 ==

== ENCOUNTER → 2025-01-02 14:37 | Outpatient (BNVA) | payer MEDICARE, OTHER, SELFPAY | PROVIDERS: PCP Family Medicine; Visit Provider Thoracic Surgery (Cardiothoracic Vascular Surgery) | DX: L89.213 Pressure ulcer of right hip, stage 3 (principal); L89.214 Pressure ulcer of right hip, stage 4; G82.21 Paraplegia, complete | CPT/HCPCS: 97605; A6237; A6250 ==

== ENCOUNTER → 2025-01-07 10:28 | Outpatient (BNVA) | payer MEDICARE, OTHER, SELFPAY | PROVIDERS: PCP Family Medicine; Visit Provider Thoracic Surgery (Cardiothoracic Vascular Surgery) | DX: I96 Gangrene, not elsewhere classified (principal); L89.213 Pressure ulcer of right hip, stage 3; L89.892 Pressure ulcer of other site, stage 2 | CPT/HCPCS: 11043; 11046; 97605; A6237; A6250 ==

== ENCOUNTER → 2025-01-10 11:22 | Outpatient (BNVA) | payer MEDICARE, OTHER, SELFPAY | PROVIDERS: PCP Family Medicine; Visit Provider Thoracic Surgery (Cardiothoracic Vascular Surgery) | DX: I96 Gangrene, not elsewhere classified (principal); L89.213 Pressure ulcer of right hip, stage 3; L89.892 Pressure ulcer of other site, stage 2 | CPT/HCPCS: 97605; A6237; A6250 ==

== ENCOUNTER → 2025-01-14 13:28 | Outpatient (BNVA) | payer MEDICARE, OTHER, SELFPAY | PROVIDERS: PCP Family Medicine; Visit Provider Thoracic Surgery (Cardiothoracic Vascular Surgery) | DX: I96 Gangrene, not elsewhere classified (principal); L89.213 Pressure ulcer of right hip, stage 3; L89.892 Pressure ulcer of other site, stage 2 | CPT/HCPCS: 11042; 97605; A6237; A6250 ==

== ENCOUNTER → 2025-01-17 10:25 | Outpatient (BNVA) | payer MEDICARE, OTHER, SELFPAY | PROVIDERS: PCP Family Medicine; Visit Provider Thoracic Surgery (Cardiothoracic Vascular Surgery) | DX: L89.213 Pressure ulcer of right hip, stage 3 (principal); L89.214 Pressure ulcer of right hip, stage 4; G82.21 Paraplegia, complete | CPT/HCPCS: 97605; A6237; A6250 ==

== ENCOUNTER → 2025-01-21 13:26 | Outpatient (BNVA) | payer MEDICARE, OTHER, SELFPAY | PROVIDERS: PCP Family Medicine; Visit Provider Thoracic Surgery (Cardiothoracic Vascular Surgery) | DX: I96 Gangrene, not elsewhere classified (principal); L89.213 Pressure ulcer of right hip, stage 3; L89.892 Pressure ulcer of other site, stage 2 | CPT/HCPCS: 11042; 11043; A6248 ==

== ENCOUNTER → 2025-01-23 14:23 | Outpatient (BNVA) | payer MEDICARE, OTHER, SELFPAY | PROVIDERS: PCP Family Medicine; Visit Provider Thoracic Surgery (Cardiothoracic Vascular Surgery) | DX: L89.214 Pressure ulcer of right hip, stage 4 (principal); L89.213 Pressure ulcer of right hip, stage 3; G82.21 Paraplegia, complete | CPT/HCPCS: 97605; A6237; A6250 ==

== ENCOUNTER → 2025-01-27 14:25 | Outpatient (BNVA) | payer MEDICARE, OTHER, SELFPAY | PROVIDERS: PCP Family Medicine; Visit Provider Thoracic Surgery (Cardiothoracic Vascular Surgery) | DX: I96 Gangrene, not elsewhere classified (principal); L89.213 Pressure ulcer of right hip, stage 3; L89.892 Pressure ulcer of other site, stage 2 | CPT/HCPCS: 11042; 11044; 87070; 87176; 87205; A6248 ==

== ENCOUNTER → 2025-02-03 13:39 | Outpatient (BNVA) | payer MEDICARE, OTHER, SELFPAY | PROVIDERS: PCP Family Medicine; Visit Provider Thoracic Surgery (Cardiothoracic Vascular Surgery) | DX: I96 Gangrene, not elsewhere classified (principal); L89.214 Pressure ulcer of right hip, stage 4; L89.892 Pressure ulcer of other site, stage 2; G83.9 Paralytic syndrome, unspecified; C79.51 Secondary malignant neoplasm of bone; C64.9 Malignant neoplasm of unspecified kidney, except renal pelvis; R79.89 Other specified abnormal findings of blood chemistry; F11.90 Opioid use, unspecified, uncomplicated; Z79.899 Other long term (current) drug therapy; Z97.8 Presence of other specified devices | CPT/HCPCS: 11042; 11044; 80053; 82040; 82306; 82607; 83735; 84270; 84403; 84439; 84443; 84481; 85025; 86140; 87070; 87077; 87176; 87186; 87205; 97605; A6220; A6248 ==

== ENCOUNTER 2025-02-05 12:09 | Oncology outpatient (recurring) (ONCR) | payer MEDICARE, OTHER, SELFPAY ==
[2025-02-05] VITALS (10 sets, daily range): BP systolic 110–127; BP diastolic 54–79; PULSE 90–116; RESP 16–18; TEMP 35.9–37.4; O2SAT 96–97
[2025-02-05 13:06] LABS: Hematocrit 20.7 % (37-53)
[2025-02-05] MEDS: diphenhydrAMINE 25 mg Capsule PO (14:12)
[2025-02-05] MEDS: acetaminophen 500 mg Tablet PO ×2 (14:12→16:10)
[2025-02-05] MEDS: sodium chloride 0.9% 250 mL Bag IV (14:13)
== END 2025-02-17 23:59 | disposition home or self-care (01) ==
PROVIDERS: PCP Family Medicine; Visit Provider Family Medicine
DX: D64.9 Anemia, unspecified (principal)
CPT/HCPCS: 36430; 85014; 85018; 86850; 86900; 86920; J7050; J9999; P9016

== ENCOUNTER → 2025-02-06 13:39 | Outpatient (BNVA) | payer MEDICARE, OTHER, SELFPAY | PROVIDERS: PCP Family Medicine; Visit Provider Thoracic Surgery (Cardiothoracic Vascular Surgery) | DX: G82.21 Paraplegia, complete (principal); L89.213 Pressure ulcer of right hip, stage 3; L89.214 Pressure ulcer of right hip, stage 4 | CPT/HCPCS: 97605 ==

== ENCOUNTER → 2025-02-10 13:51 | Outpatient (BNVA) | payer MEDICARE, OTHER, SELFPAY | PROVIDERS: PCP Family Medicine; Visit Provider Thoracic Surgery (Cardiothoracic Vascular Surgery) | DX: I96 Gangrene, not elsewhere classified (principal); L89.213 Pressure ulcer of right hip, stage 3; L89.892 Pressure ulcer of other site, stage 2 | CPT/HCPCS: 11042; 97597; 97605; A6220; A6237; A6250 ==

== ENCOUNTER → 2025-02-13 14:33 | Outpatient (BNVA) | payer MEDICARE, OTHER, SELFPAY | PROVIDERS: PCP Family Medicine; Visit Provider Thoracic Surgery (Cardiothoracic Vascular Surgery) | DX: L89.213 Pressure ulcer of right hip, stage 3 (principal); L89.214 Pressure ulcer of right hip, stage 4; G82.21 Paraplegia, complete | CPT/HCPCS: 97605; A6237; A6250 ==

== ENCOUNTER → 2025-02-17 13:29 | Outpatient (BNVA) | payer MEDICARE, OTHER, SELFPAY | PROVIDERS: PCP Family Medicine; Visit Provider Thoracic Surgery (Cardiothoracic Vascular Surgery) | DX: I96 Gangrene, not elsewhere classified (principal); L89.214 Pressure ulcer of right hip, stage 4; L89.893 Pressure ulcer of other site, stage 3; G82.20 Paraplegia, unspecified | CPT/HCPCS: 11042; 87070; 87176; 87205; 97605; A6210; A6220; A6237; A6250 ==

== ENCOUNTER → 2025-02-21 10:50 | Outpatient (BNVA) | payer MEDICARE, OTHER, SELFPAY | PROVIDERS: PCP Family Medicine; Visit Provider Thoracic Surgery (Cardiothoracic Vascular Surgery) | DX: L89.213 Pressure ulcer of right hip, stage 3 (principal); L89.214 Pressure ulcer of right hip, stage 4; G82.21 Paraplegia, complete | CPT/HCPCS: 97605; A6237; A6250 ==

== ENCOUNTER → 2025-02-24 13:53 | Outpatient (BNVA) | payer MEDICARE, OTHER, SELFPAY | PROVIDERS: PCP Family Medicine; Visit Provider Psychiatry & Neurology Neurology | DX: M47.14 Other spondylosis with myelopathy, thoracic region (principal); G83.10 Monoplegia of lower limb affecting unspecified side; M62.838 Other muscle spasm | CPT/HCPCS: 99212 ==

== ENCOUNTER → 2025-02-25 09:11 | Outpatient (BNVA) | payer MEDICARE, OTHER, SELFPAY | PROVIDERS: PCP Family Medicine; Visit Provider Thoracic Surgery (Cardiothoracic Vascular Surgery) | DX: I96 Gangrene, not elsewhere classified (principal); L89.214 Pressure ulcer of right hip, stage 4; L89.893 Pressure ulcer of other site, stage 3 | CPT/HCPCS: 11042; 97605; A6210; A6237; A6248; A6250 ==

== ENCOUNTER → 2025-02-28 10:46 | Outpatient (BNVA) | payer MEDICARE, OTHER, SELFPAY | PROVIDERS: PCP Family Medicine; Visit Provider Thoracic Surgery (Cardiothoracic Vascular Surgery) | DX: L89.213 Pressure ulcer of right hip, stage 3 (principal); L89.214 Pressure ulcer of right hip, stage 4; G82.21 Paraplegia, complete | CPT/HCPCS: 97605; A6237 ==

== ENCOUNTER → 2025-03-04 13:14 | Outpatient (BNVA) | payer MEDICARE, OTHER, SELFPAY | PROVIDERS: PCP Family Medicine | DX: I96 Gangrene, not elsewhere classified (principal); L89.214 Pressure ulcer of right hip, stage 4; L89.893 Pressure ulcer of other site, stage 3 | CPT/HCPCS: 11042; 11045; 97605; A6237; A6250 ==

== ENCOUNTER → 2025-03-07 10:54 | Outpatient (BNVA) | payer MEDICARE, OTHER, SELFPAY | PROVIDERS: PCP Family Medicine | DX: L89.214 Pressure ulcer of right hip, stage 4 (principal); L89.894 Pressure ulcer of other site, stage 4; G82.21 Paraplegia, complete | CPT/HCPCS: 97605; A6237; A6250 ==

== ENCOUNTER → 2025-03-11 13:34 | Outpatient (BNVA) | payer MEDICARE, OTHER, SELFPAY | PROVIDERS: PCP Family Medicine; Visit Provider Thoracic Surgery (Cardiothoracic Vascular Surgery) | DX: L89.214 Pressure ulcer of right hip, stage 4 (principal); L89.893 Pressure ulcer of other site, stage 3; G83.9 Paralytic syndrome, unspecified | CPT/HCPCS: 11042; 11044; 87070; 87176; 87205; 97605; A6237; A6250 ==

== ENCOUNTER → 2025-03-18 14:53 | Outpatient (BNVA) | payer MEDICARE, OTHER, SELFPAY | PROVIDERS: PCP Family Medicine; Visit Provider Thoracic Surgery (Cardiothoracic Vascular Surgery) | DX: I96 Gangrene, not elsewhere classified (principal); L89.214 Pressure ulcer of right hip, stage 4; L89.893 Pressure ulcer of other site, stage 3 | CPT/HCPCS: 11042; 11044; 87070; 87176; 87205 ==

== ENCOUNTER 2025-04-03 14:09 | Outpatient (CLI) | payer MEDICARE, OTHER, SELFPAY ==
--- NOTE | 2025-04-03 14:11 | CTR_ITS ---
PROCEDURE INFORMATION: Exam: CT Chest With Contrast; Diagnostic Exam date and time: 04/03/2025 2:28 PM Age: 44 years old Clinical indication: Condition or disease; Other: Renal cell cancer; Prior surgery; Surgery date: 6+ months; Surgery type: Left kidny, back-multiples, pelvis; Additional info: Access for metastatic disease progression, renal cell CA TECHNIQUE: Imaging protocol: Diagnostic computed tomography of the chest with contrast. Radiation optimization: All CT scans at this facility use at least one of these dose optimization techniques: automated exposure control; mA and/or kV adjustment per patient size (includes targeted exams where dose is matched to clinical indication); or iterative reconstruction. Contrast material: OMNI 350; Contrast volume: 100 ml; Contrast route: INTRAVENOUS (IV); COMPARISON: CR XR abdomen 1V* [id number] 04/18/2024 2:33 PM RADIATION DOSE METRICS: Total DLP (mGy-cm): 917.46 FINDINGS: Lungs: Bilateral lower lobe consolidation or atelectasis, [id number]. There are several pulmonary nodules bilaterally which are noncalcified and suspicious for metastatic disease. The largest is 9 mm in the left lower lobe. Pleural spaces: Small bilateral pleural effusions. There is a mass in the right pleural space at the base posteriorly measuring 3.1 x 4.1 cm. Subtle nodularity of the right pleura. Heart: Unremarkable. No cardiomegaly. No pericardial effusion. Lymph nodes: Subcarinal adenopathy measures 1.8 cm short axis. Left hilar adenopathy measures 2 cm. Vasculature: Unremarkable. No aortic aneurysm. Bones/joints: Multiple lytic lesions in the mid to lower thoracic vertebral bodies consistent with osseous metastatic disease. Spinal hardware partially visualized. There is mixed lytic and sclerotic lesion in the sternum consistent with osseous metastatic disease. Soft tissues: Unremarkable. PROCEDURE INFORMATION: Exam: CT Abdomen And Pelvis With Contrast Exam date and time: 04/03/2025 2:28 PM Age: 44 years old Clinical indication: Condition or disease; Other: Renal cell cancer; Prior surgery; Surgery date: 6+ months; Surgery type: Left kidny, back-multiples, pelvis; Additional info: Access for metastatic disease progression, renal cell CA TECHNIQUE: Imaging protocol: Computed tomography of the abdomen and pelvis with contrast. Radiation optimization: All CT scans at this facility use at least one of these dose optimization techniques: automated exposure control; mA and/or kV adjustment per patient size (includes targeted exams where dose is matched to clinical indication); or iterative reconstruction. Contrast material: OMNI 350; Contrast volume: 100 ml; Contrast route: INTRAVENOUS (IV); COMPARISON: DX XR pelvis min 3V [id number] 06/04/2024 1:48 PM RADIATION DOSE METRICS: Total DLP (mGy-cm): 917.46 FINDINGS: Tubes, catheters and devices: Suprapubic catheter in a decompressed urinary bladder. Liver: Normal. No mass. Gallbladder and biliary ducts: Normal. No calcified stones. No ductal dilation. Pancreas: There is nodularity of the pancreas especially in the body and tail. Metastatic involvement is not excluded. Also 2.7 x 2.6 cm mass in the head of the pancreas versus peripancreatic adenopathy. Spleen: Normal. No splenomegaly. Adrenal glands: Normal. No mass. Kidneys and ureters: Status post left nephrectomy. Right renal enhancing mass measures 3 cm and is slightly exophytic. Stomach and bowel: Unremarkable. No obstruction. No mucosal thickening. Appendix: No evidence of appendicitis. Intraperitoneal space: Unremarkable. No free air. No significant fluid collection. Vasculature: Unremarkable. No abdominal aortic aneurysm. Lymph nodes: See Pancreas finding. Urinary bladder: Unremarkable as visualized. Reproductive: Unremarkable as visualized. Bones/joints: The right iliac bone demonstrates lytic lesions with fractures status post ORIF. Extensive metastatic disease in the lower thoracic and lumbar spine again noted with lytic and sclerotic lesions status post posterior spinal fixation. There is a large defect posterior to the proximal right femur and hip filled with gas and extending down to bone. Soft tissues: Small bowel stoma in the left anterior abdominal wall. CT/CT chest abdpe w/*[id number] IMPRESSION: 1. Extensive osseous metastatic disease. 2. Bilateral pulmonary nodules measuring up to 9 mm, suspicious for metastatic disease. 3. Subcarinal and left hilar adenopathy suspicious for malignancy. 4. Small bilateral pleural effusions. Right pleural mass inferiorly suspicious for metastatic disease. IMPRESSION: 1. Extensive osseous metastatic disease. 2. Large defect in the soft tissues of the right hip and proximal femur down to the bone. Infection of the bone or osteitis osteomyelitis cannot be excluded. 3. Nodularity of the pancreas which may represent metastatic disease. Multifocal pancreatic neoplasms is less likely but in the differential. 4. Enhancing right renal mass suspicious for neoplasm. Left kidney surgically absent. 5. PET-CT may be valuable in this clinical setting. COMMENTS: Consistent with the [employer]'s Incidental Findings Committee white paper (J Am Maverick Radiol 2018): Any incidental renal lesion less than 1 cm or classified as too small to characterize, or any incidental cystic renal lesion characterized as simple-appearing, is likely benign. No follow-up imaging is recommended for these lesions per consensus recommendations based on imaging criteria.
[2025-04-03] MEDS: iohexol 350 mg/mL 500 mL Btl (per mL) IV (14:42)
== END 2025-04-03 14:10 | disposition home or self-care (01) ==
PROVIDERS: PCP Family Medicine; Visit Provider Internal Medicine Medical Oncology
DX: C64.2 Malignant neoplasm of left kidney, except renal pelvis (principal); M79.89 Other specified soft tissue disorders; K86.89 Other specified diseases of pancreas; N28.89 Other specified disorders of kidney and ureter; Z98.890 Other specified postprocedural states; R91.8 Other nonspecific abnormal finding of lung field; J90 Pleural effusion, not elsewhere classified; J94.9 Pleural condition, unspecified; R59.0 Localized enlarged lymph nodes; R93.7 Abnormal findings on diagnostic imaging of other parts of musculoskeletal system; Z96.89 Presence of other specified functional implants; C79.51 Secondary malignant neoplasm of bone; Z93.3 Colostomy status
CPT/HCPCS: 71260; 74177

== ENCOUNTER 2025-04-22 13:17 | Outpatient (CLI) | payer MEDICARE, OTHER, SELFPAY ==
[2025-04-22 13:29] LABS: Hematocrit 23.3 % (37-53); Mean Corpuscular HGB Conc 26.6 g/dL (30-55); Mean Corpuscular Hemoglobin 19.8 pg (27-33); Mean Corpuscular Volume 74.4 fl (82-101); Mean Platelet Volume 9.3 fL (7.4-10.4); Platelet Count 621 10^3/cmm (157-399); Red Blood Count 3.13 10^6/uL (3.85-5.65); Red Cell Distribution Width 18.8 % (12.1-15.1); White Blood Count 14.67 10^3/uL (3.29-11.43)
[2025-04-22 14:33] LABS: Lymphocytes 41 %; Monocytes Absolute 1.8 10^3/cmm (0.1-0.6); Total Cells Counted 100 (0-100)
[2025-04-22 14:34] LABS: Platelet Estimate Increased (Normal)
[2025-04-22 14:35] LABS: Anisocytosis 1+
[2025-04-22 14:36] LABS: Microcytosis Trace
[2025-04-22 14:50] LABS: Absolute Segmented Neutrophil 5.7 10/cmm (1.6-7.1); Segmented Neutrophils 39 %
[2025-04-22 14:51] LABS: Absolute Eosinophils 1.2 10^3/cmm (0.0-0.7); Eosinophils 8 %
== END 2025-04-22 13:18 | disposition home or self-care (01) ==
PROVIDERS: PCP Family Medicine; Visit Provider Family Medicine
DX: C79.51 Secondary malignant neoplasm of bone (principal)
CPT/HCPCS: 85007; 85027

== ENCOUNTER 2025-05-27 15:51 | Outpatient (CLI) | payer MEDICARE, OTHER, SELFPAY ==
[2025-05-27 16:07] LABS: Hematocrit 22.4 % (37-53); Mean Corpuscular HGB Conc 26.8 g/dL (30-55); Mean Corpuscular Hemoglobin 19.9 pg (27-33); Mean Corpuscular Volume 74.2 fl (82-101); Platelet Count 627 10^3/cmm (157-399); Red Blood Count 3.02 10^6/uL (3.85-5.65); White Blood Count 13.32 10^3/uL (3.29-11.43)
[2025-05-27 16:46] LABS: Hemoglobin 6.00 g/dL (11.27-16.99)
[2025-05-27 16:47] LABS: Total Cells Counted 100 (0-100)
[2025-05-27 16:53] LABS: Absolute Segmented Neutrophil 5.6 10/cmm (1.6-7.1); Anisocytosis 1+; Atypical Lymphs 1.0 % (0-5); Band Neutrophils Absolute 1.1 10^3/cmm (0.0-1.2); Microcytosis 1+; Smudge Cells 2+
== END 2025-05-27 15:52 | disposition home or self-care (01) ==
LOC: LAB 15:53
PROVIDERS: PCP Family Medicine; Visit Provider Family Medicine
DX: D50.9 Iron deficiency anemia, unspecified (principal)
CPT/HCPCS: 85007; 85027

== ENCOUNTER 2025-06-06 07:30 | Oncology outpatient (recurring) (ONCR) | payer MEDICARE, OTHER, SELFPAY ==
[2025-06-05 16:18] LABS: Mean Corpuscular HGB Conc 26.7 g/dL (30-55); Mean Corpuscular Hemoglobin 19.9 pg (27-33); Mean Corpuscular Volume 74.5 fl (82-101); Nucleated Red Blood Cells % 0 %; Platelet Count 533 10^3/cmm (157-399); Red Blood Count 2.71 10^6/uL (3.85-5.65); White Blood Count 20.51 10^3/uL (3.29-11.43)
[2025-06-05 16:51] LABS: Hemoglobin 5.40 g/dL (11.27-16.99)
[2025-06-05 16:52] LABS: Hematocrit 20.2 % (37-53)
[2025-06-06] VITALS (11 sets, daily range): BP systolic 97–117; BP diastolic 53–76; PULSE 78–100; RESP 17; TEMP 36.2–36.7; O2SAT 95–99
== END 2025-06-19 23:59 | disposition home or self-care (01) ==
PROVIDERS: PCP Family Medicine; Visit Provider Family Medicine
DX: Z53.9 Procedure and treatment not carried out, unspecified reason; D50.9 Iron deficiency anemia, unspecified; C64.9 Malignant neoplasm of unspecified kidney, except renal pelvis
CPT/HCPCS: 36430; 36591; 85025; 86850; 86900; 86920; J7050; P9016

== ENCOUNTER 2025-07-08 14:35 | Outpatient (CLI) | payer MEDICARE, OTHER, SELFPAY ==
[2025-07-08 16:46] LABS: Hematocrit 23.9 % (37-53); Hemoglobin 7.10 g/dL (11.27-16.99); Mean Corpuscular HGB Conc 29.7 g/dL (30-55); Mean Corpuscular Hemoglobin 23.1 pg (27-33); Mean Corpuscular Volume 77.9 fl (82-101); Platelet Count 494 10^3/cmm (157-399); Red Blood Count 3.07 10^6/uL (3.85-5.65); White Blood Count 15.01 10^3/uL (3.29-11.43)
[2025-07-08 18:29] LABS: Total Cells Counted 100 (0-100)
[2025-07-08 18:34] LABS: Absolute Segmented Neutrophil 10.5 10/cmm (1.6-7.1); Atypical Lymphs 0.0 % (0-5); Band Neutrophils Absolute 2.1 10^3/cmm (0.0-1.2)
[2025-07-08 18:35] LABS: Anisocytosis 2+; Hypochromasia 1+; Microcytosis 1+; Smudge Cells 2+
== END 2025-07-08 14:36 | disposition home or self-care (01) ==
PROVIDERS: PCP Family Medicine; Visit Provider Family Medicine
DX: C79.51 Secondary malignant neoplasm of bone (principal); C64.2 Malignant neoplasm of left kidney, except renal pelvis
CPT/HCPCS: 85007; 85027

== ENCOUNTER 2025-08-07 09:55 | Oncology outpatient (recurring) (ONCR) | payer MEDICARE, OTHER, SELFPAY ==
[2025-08-07] VITALS (9 sets, daily range): BP systolic 105–124; BP diastolic 67–76; PULSE 64–104; RESP 16–18; TEMP 36.4–37.1; O2SAT 94–99
[2025-08-07 10:58] LABS: Mean Corpuscular HGB Conc 29.3 g/dL (30-55); Mean Corpuscular Hemoglobin 22.4 pg (27-33); Mean Corpuscular Volume 76.5 fl (82-101); Nucleated Red Blood Cells % 0 %; Platelet Count 541 10^3/cmm (157-399); Red Blood Count 2.68 10^6/uL (3.85-5.65); White Blood Count 20.18 10^3/uL (3.29-11.43)
[2025-08-07 11:04] LABS: Hematocrit 20.5 % (37-53)
[2025-08-07 11:05] LABS: Hemoglobin 6.00 g/dL (11.27-16.99)
== END 2025-08-19 23:59 | disposition home or self-care (01) ==
PROVIDERS: PCP Family Medicine; Visit Provider Family Medicine
DX: D50.9 Iron deficiency anemia, unspecified (principal); Z79.899 Other long term (current) drug therapy
CPT/HCPCS: 36415; 36430; 85025; 86850; 86900; 86920; J7050; P9016

== ENCOUNTER → 2025-09-11 12:19 | Outpatient (BNVA) | payer MEDICARE, OTHER, SELFPAY | PROVIDERS: PCP Family Medicine; Visit Provider Family Medicine | DX: D50.9 Iron deficiency anemia, unspecified (principal); C64.9 Malignant neoplasm of unspecified kidney, except renal pelvis; C79.51 Secondary malignant neoplasm of bone | CPT/HCPCS: 80053; 85025 ==

== ENCOUNTER 2025-09-13 14:08 | Emergency (ER) | payer MEDICARE, OTHER, SELFPAY ==
--- OUTSIDE RECORDS SUMMARY | 2025-09-13 14:13 | XMS_ITS ---
Author Organization [facility] Address [address] [place] [address] Phone Care Team Providers Care Media Theorist And Author Of Name Role Phone Celestino Hurst DO Primary Care Provider [phone] Active Problems Problem Noted Date Diagnosed Date Chronic midline low back pain without sciatica 0 01/06/2017 Cancer, metastatic to bone 11/04/2016 Renal cell carcinoma of left kidney 09/02/2016 Renal cell cancer 08/26/2016 Current Treatment and Therapy Plans No current plan information found. Past Treatment and Therapy Plans ONCOLOGY THERAPY PLAN Plan Name Start Date Discontinue Date Treatment Medications Discontinue Reason Plan Provider OP ONC ZOLEDRONIC ACID (ZOMETA) FOR BONE METASTASIS OR MULTIPLE MYELOMA 01/06/2017 12/15/2020 No medications scheduled. Therapy Complete Debbie Thomas MD Lifetime Dose Tracking * Chemical Lifetime Dose Automatic Entry Manual Entr y Effective Dose 13.2 mSv 13.2 mSv 0 mSv Total DLP 1,072 DLP 1,072 DLP 0 DLP CTDIvol Max 13.7 mGy 13.7 mGy 0 mGy CTDIvol Min 13 mGy 13 mGy 0 mGy
--- OUTSIDE RECORDS SUMMARY | 2025-09-13 14:13 | XMS_ITS | Patient Health Record ---
Author Organization [employer], [employer] Address [address] [place] [address] Care Team Providers Care Safety And Health Consultant Name Role Phone Celestino Hurst Primary Care Provider Harley ONEILL BARRY Unavailable [phone] AlbraoNestorel Unavailable [phone] Allergies No Known Allergies Results Component Value Reference Range Notes BASIC METABOLIC PANEL (44724 ) Reviewed date:10/16/2024 01:12:04 PM Interpretation: Performing Lab:[facility] Felecia-[id number] Cadence Perez, [id number] Camden Travis MD Notes/Report: GLUCOSE 92 65-99 mg/dL Fasting reference interval UREA NITROGEN (BUN) 13 7-25 mg/dL CREATININE 0.70 0.60-1.29 mg/dL EGFR 118 > OR = 60 mL/min/1.73m2 BUN/CREATININE RATIO SEE NOTE: 6-22 (calc) Not Reported: BUN and Creatinine are within reference range. SODIUM 142 135-146 mmol/L POTASSIUM 4.4 3.5-5.3 mmol/L CHLORIDE 98 98-110 mmol/L CARBON DIOXIDE 38 20-32 mmol/L CALCIUM 9.9 8.6-10.3 mg/dL CBC (INCLUDES DIFF/PLT) (639 9) Reviewed date:10/16/2024 01:12:04 PM Interpretation: Performing Lab:[facility] Felecia-[id number] Cadence Perez, [id number] Camden Travis MD Notes/Report: WHITE BLOOD CELL COUNT 11.3 3.8-10.8 Thousand/ uL RED BLOOD CELL COUNT 3.34 4.20-5.80 Million/uL HEMOGLOBIN 8.5 13.2-17.1 g/dL HEMATOCRIT 27.8 38.5-50.0 % MCV 83.2 80.0-100.0 fL MCH 25.4 27.0-33.0 pg MCHC 30.6 32.0-36.0 g/dL For adults, a slight decrease in the calculated MCHC value (in the range of 30 to 32 g/dL) is most likely not clinically significant; however, it should be interpreted with caution in correlation with other red cell parameters and the patient's clinical condition. RDW 15.9 11.0-15.0 % PLATELET COUNT 350 140-400 Thousand/uL MPV 10.8 7.5-12.5 fL ABSOLUTE NEUTROPHILS 8633 8445-3769 cells/uL ABSOLUTE LYMPHOCYTES 8096 705-0637 cells/uL ABSOLUTE MONOCYTES 1096 200-950 cells/uL ABSOLUTE EOSINOPHILS 237 15-500 cells/uL ABSOLUTE BASOPHILS 34 0-200 cells/uL NEUTROPHILS 76.4 LYMPHOCYTES 11.5 MONOCYTES 9.7 EOSINOPHILS 2.1 BASOPHILS 0.3 URINALYSIS, COMPLETE W/REFLE X TO CULTURE (3020) Reviewed date:10/16/2024 01:12:04 PM Interpretation: Performing Lab:KS, [facility]-[id number] Cadence [facility], [id number] Camden Travis MD Notes/Report: COLOR YELLOW YELLOW APPEARANCE CLEAR CLEAR SPECIFIC GRAVITY 1.008 1.001-1.035 PH 7.0 5.0-8.0 GLUCOSE NEGATIVE NEGATIVE BILIRUBIN NEGATIVE NEGATIVE KETONES NEGATIVE NEGATIVE OCCULT BLOOD NEGATIVE NEGATIVE PROTEIN NEGATIVE NEGATIVE NITRITE POSITIVE NEGATIVE LEUKOCYTE ESTERASE 2+ NEGATIVE WBC 10-20 < OR = 5 /HPF RBC NONE SEEN < OR = 2 /HPF SQUAMOUS EPITHELIAL CELLS NONE SEEN < OR = 5 /HPF BACTERIA FEW NONE SEEN /HPF HYALINE CAST 0-5 NONE SEEN /LPF REFLEXIVE URINE CULTURE CULTURE INDICATED - RESULTS TO FOLLOW CULTURE, URINE, ROUTINE Micro Number: [id number] Test Status: Final Specimen Source: Urine Specimen Quality: Adequate Result: 50,000-100,000 CFU/mL of Coagulase negative staphylococcus, not S. saprophyticus May represent colonizers from external and internal genitalia. No further testing (including susceptibility) will be performed. CULTURE, URINE, ROUTINE SEE NOTE CULTURE INDICATED - RESULTS TO FOLLOW CULTURE, URINE, ROUTINE Micro Number: [id number] Test Status: Final Specimen Source: Urine Specimen Quality: Adequate Result: 50,000-100,000 CFU/mL of Coagulase negative staphylococcus, not S. saprophyticus May represent colonizers from external and internal genitalia. No further testing (including susceptibility) will be performed. Urinalysis, Routine Reviewed date:08/12/2025 11:09:43 AM Interpretation: Performing Lab: Notes/Report: Urine-Color yellow Appearance clear Glucose - Bilirubin - Ketones - Specific [place] 1.010 Occult Blood trace pH 6.0 Urine Protein - Urobilinogen,Semi-Qn - Nitrite, Urine - WBC Esterase 3+ UBASE - Urinary Tract Infect ion (HTRx) Reviewed date:08/13/2025 12:50:04 PM Interpretation: Performing Lab:, [facility], [address] [place] [address], Phone - [phone], Director - [id number] Notes/Report: Acinetobacter baumannii 0 19.961 - 24.689 p pm Acinetobacter baumannii Not Detected 19.961 - 24.689 p pm Citrobacter freundii 0 23.000 - 32.015 ppm Citrobacter freundii Not Detected 23.000 - 32.015 ppm Enterobacter aerogenes, cloacae 0 23.000 - 32.290 ppm Enterobacter aerogenes, cloacae Not Detected 23.000 - 32.290 ppm Enterococcus faecalis, faecium 0 26.000 - 33.043 ppm Enterococcus faecalis, faecium Not Detected 26.000 - 33.043 ppm Escherichia coli 0 23.000 - 28.500 ppm Escherichia coli Not Detected 23.000 - 28.500 ppm Klebsiella pneumoniae, oxytoca 0 23.000 - 31.865 ppm Klebsiella pneumoniae, oxytoca Not Detected 23.000 - 31.865 ppm Morganella morganii 0 19.961 - 24.689 ppm Morganella morganii Not Detected 19.961 - 24.689 ppm Proteus mirabilis, vulgaris 0 23.000 - 28.5 00 ppm Proteus mirabilis, vulgaris Not Detected 23.000 - 28.5 00 ppm Pseudomonas aeruginosa 18.08 23.000 - 31.801 pp m Pseudomonas aeruginosa Detected 23.000 - 31.801 pp m Staphylococcus aureus 0 26.000 - 31.595 ppm Staphylococcus aureus Not Detected 26.000 - 31.595 ppm Streptococcus agalactiae (Group B Strep) 0 26.000 - 32.435 ppm Streptococcus agalactiae (Group B Strep) Not Detected 26.000 - 32.435 ppm Ariane albicans, parapsilosis, tropicalis 0 23.000 - 30.347 ppm Ariane albicans, parapsilosis, tropicalis Not Detected 23.000 - 30.347 ppm Ariane glabrata (Nakaseomyces glabratus) 0 23.000 - 31.618 ppm Ariane glabrata (Nakaseomyces glabratus) Not Detected 23.000 - 31.618 ppm Ariane krusei (Pichia kudriavzevii) 0 23.000 - 30.873 ppm Ariane krusei (Pichia kudriavzevii) Not Detected 23.000 - 30.873 ppm Serratia marcescens 0 23.000 - 31.581 ppm Serratia marcescens Not Detected 23.000 - 31.581 ppm Streptococcus pyogenes (Group A strep) 0 19.961 - 24.689 ppm Streptococcus pyogenes (Group A strep) Not Detected 19.961 - 24.689 ppm Staphylococcus saprophyticus 0 19.961 - 24.689 ppm Staphylococcus saprophyticus Not Detected 19.961 - 24.689 ppm Staphylococcus epidermidis, haemolyticus, lugdunensis 0 19.961 - 24.689 ppm Staphylococcus epidermidis, haemolyticus, lugdunensis Not Detected 19.961 - 24.689 ppm Reason For Referral No Information Medications Medication SIG (Take, Route, Fr equency, Duration) Notes Start Date End Date Status Gabapentin 600 MG 1 tablet Orally thre e times a day Active tiZANidine HCl 4 MG 1 tablet Orally every 6 hours As needed Active Gemtesa 75 MG 1 tablet Orally Once a day; Duration: 90 days 08/29/2025 08/24/2026 Active predniSONE Active oxyCODONE HCl 30 MG 1 Orally every 4 hours As needed Active Welireg 40 MG 3 tablets Orally Once a day Active OxyCONTIN 30 MG 3 tablets Orally every 8 hours Active Social History Tobacco Use: Social History Observation Description Date Details (start date - stop date) Never Smoker NA - NA Tobacco Control (Standard) Question Answer Notes Tobacco use: Nonsmoker AUDIT-C (Standard) Question Answer Notes Did you have a drink containing alcohol in the p ast year? No Points 0 Interpretation Negative Problems Problem Type SNOMED Code ICD Code Onset Dates Problem Status W/U Status Risk Notes Problem Incision of bladder (41604996) Encounter for attention to cystostomy (Z43.5) Active confirmed Problem Neurogenic bladder (069113471) Neurogenic bladder (N31.9) Active confirmed Problem Male hypogonadism (66366439) Hypogonadism in male (E29.1) Active confirmed Problem Primary malignant neoplasm of kidney (71634259) Metastatic renal cell carcinoma, unspecified laterality (C64.9) Active confirmed Vital Signs Heart Rate 97 /min 08/12/2025 Blood pressure diastolic 89 mm Hg 08/12/2025 Height-cm 182.88 cm 08/13/2025 Weight-kg 95.26 kg 08/12/2025 Height 72 in 08/13/2025 Blood pressure systolic 129 mm Hg 08/12/2025 Weight 210 lbs 08/12/2025 BMI 28.48 kg/m2 08/12/2025 Procedures Procedure Date Ordered Date Performed Result Body Sit e SP Tube Change 11/05/2024 11/05/2024 N/A Encounters Encounter Location Date Provider Diagnosis [employer], [facility] [address] [place] [address] 09/19/2024 BARRY ONEILL Neurogenic bladder N31.9 ; Metastatic renal cell carcinoma, unspecified laterality C64.9 and Hypogonadism in male E29.1 [employer], [facility] [address] [place] [address] 10/16/2024 BARRY ONEILL Neurogenic bladder N31.9 [employer], [facility] [address] [place] [address] 11/05/2024 Barry Pevril Neurogenic bladder N31.9 ; Metastatic renal cell carcinoma, unspecified laterality C64.9 ; Hypogonadism in male E29.1 and Encounter for attention to cystostomy Z43.5 [employer], [facility] [address] [place] [address] 02/04/2025 Barry Pevril Neurogenic bladder N31.9 ; Metastatic renal cell carcinoma, unspecified laterality C64.9 and Hypogonadism in male E29.1 [employer], [facility] [address] [place] [address] 08/12/2025 Barry Pevril Neurogenic bladder N31.9 ; Metastatic renal cell carcinoma, unspecified laterality C64.9 and Hypogonadism in male E29.1 [facility] [address] [place] [address] 10/09/2024 BARRY ONEILL [facility] [address] [place] [address] 10/10/2024 BARRY ONEILL [facility] [address] [place] [address] 10/10/2024 BARRY ONEILL Preop testing Z01.81 8 ; Metastatic renal cell carcinoma, unspecified laterality C64.9 and Neurogenic bladder N31.9 [facility] [address] [place] [address] 07/02/2025 BARRY ONEILL [facility] [address] [place] [address] 08/13/2025 Barry Irvin [facility] [address] [place] [address] 08/29/2025 BARRY ONEILL Assessments Encounter Date Diagnosis (ICD Code) Assessment Notes Treatment Notes Treatment Clinical Notes Section Notes 02/04/2025 Neurogenic bladder (ICD-10 - N31.9) Patient with complext history. He is s/p SPT placement due to neurogenic bladder. He reports continued imaging every 3 months with history of RCC that has metastasized and is on continued mangement with oncology/[facility]. Plan on gaining previous records and previous labs as he reports labs completed with PCP recently. He will continue with home health changes for SPT at 16fr. Will reassess patient and symptoms in 6 months. For now, and through shared decision making we are in agreement with no further workup or intervention at this time with care plan, aside from what was mentioned. Patient has no other voiced concerns or questions. Patient satisfied with plan. 02/04/2025 Metastatic renal cell carcinoma, unspecified laterality (ICD-10 - C64.9) Patient with complext history. He is s/p SPT placement due to neurogenic bladder. He reports continued imaging every 3 months with history of RCC that has metastasized and is on continued mangement with oncology/[facility]. Plan on gaining previous records and previous labs as he reports labs completed with PCP recently. He will continue with home health changes for SPT at 16fr. Will reassess patient and symptoms in 6 months. For now, and through shared decision making we are in agreement with no further workup or intervention at this time with care plan, aside from what was mentioned. Patient has no other voiced concerns or questions. Patient satisfied with plan. 08/12/2025 Neurogenic bladder (ICD-10 - N31.9) Patient with complex history. He is s/p SPT placement due to neurogenic bladder. He reports continued imaging every 3 months with history of RCC that has metastasized and is on continued mangement with oncology/[facility]. Involving his incontinence concerns, suggested on moving forward with trialing Gemtesa samples. He will call back for prescription. Recommended on keeping close f/u to assess if further intervention is going to be needed at that time. Will send UA for PCR testing, and treat further if indicated. He will continue with home health changes for SPT at 16fr. For now, and through shared decision making we are in agreement with no further workup or intervention at this time with care plan, aside from what was mentioned. Patient has no other voiced concerns or questions. Patient satisfied with plan. CC note to PCP. 11/05/2024 Neurogenic bladder (ICD-10 - N31.9) Patient with complext history. He is s/p SPT placement due to neurogenic bladder. He reports continued imaging every 3 months with history of RCC that has metastasized and is on continued mangement with oncology. He is requesting home health change SPT. Orders placed for now to be changed every 3 weeks. Will reassess patient and symptoms in 3 months. For now, and through shared decision making we are in agreement with no further workup or intervention at this time with care plan, aside from what was mentioned. Patient has no other voiced concerns or questions. Patient satisfied with plan. 11/05/2024 Metastatic renal cell carcinoma, unspecified laterality (ICD-10 - C64.9) Patient with complext history. He is s/p SPT placement due to neurogenic bladder. He reports continued imaging every 3 months with history of RCC that has metastasized and is on continued mangement with oncology. He is requesting home health change SPT. Orders placed for now to be changed every 3 weeks. Will reassess patient and symptoms in 3 months. For now, and through shared decision making we are in agreement with no further workup or intervention at this time with care plan, aside from what was mentioned. Patient has no other voiced concerns or questions. Patient satisfied with plan. 10/16/2024 Neurogenic bladder (ICD-10 - N31.9) 10/10/2024 Preop testing (ICD-10 - Z01.818) 09/19/2024 Neurogenic bladder (ICD-10 - N31.9) Discussed treatment involving suprapubic tube placement vs self-catheteriza tion; risks and benefits of each treatment option. He has concerns of CIC due to the need to have a coude and trouble with segundo catheter placement. Pt has elected and would like to proceed forward with suprapubic tube placement. How this procedure is performed, what to expect post operatively, along with risks and benefits for this procedure was reviewed thoroughly during consult. He will be called and scheduled for next available diagnositc cystoscopy and Sptube placement at [facility]. He will return post operatively or sooner with any other concerns. IAndria CNA, am scribing for, and in the presence, of Dr. Oneill. I, Dr. Barry Oneill, personally performed the services prescribed in this documentation, as scribed by Andria Reese CNA, in my presence, and it is both accurate and complete. 09/19/2024 Metastatic renal cell carcinoma, unspecified laterality (ICD-10 - C64.9) Discussed treatment involving suprapubic tube placement vs self-catheteriza tion; risks and benefits of each treatment option. He has concerns of CIC due to the need to have a coude and trouble with segundo catheter placement. Pt has elected and would like to proceed forward with suprapubic tube placement. How this procedure is performed, what to expect post operatively, along with risks and benefits for this procedure was reviewed thoroughly during consult. He will be called and scheduled for next available diagnositc cystoscopy and Sptube placement at [facility]. He will return post operatively or sooner with any other concerns. Andria Gunn CNA, am scribing for, and in the presence, of Dr. Oneill. I, Dr. Barry Oneill, personally performed the services prescribed in this documentation, as scribed by Andria Reese CNA, in my presence, and it is both accurate and complete. 10/10/2024 Metastatic renal cell carcinoma, unspecified laterality (ICD-10 - C64.9) 09/19/2024 Hypogonadism in male (ICD-10 - E29.1) Discussed treatment involving suprapubic tube placement vs self-catheteriza tion; risks and benefits of each treatment option. He has concerns of CIC due to the need to have a coude and trouble with segundo catheter placement. Pt has elected and would like to proceed forward with suprapubic tube placement. How this procedure is performed, what to expect post operatively, along with risks and benefits for this procedure was reviewed thoroughly during consult. He will be called and scheduled for next available diagnositc cystoscopy and Sptube placement at [facility]. He will return post operatively or sooner with any other concerns. I, Andria Reese CNA, am scribing for, and in the presence, of Dr. Oneill. I, Dr. Barry Oneill, personally performed the services prescribed in this documentation, as scribed by Andria Reese CNA, in my presence, and it is both accurate and complete. 11/05/2024 Hypogonadism in male (ICD-10 - E29.1) Patient with complext history. He is s/p SPT placement due to neurogenic bladder. He reports continued imaging every 3 months with history of RCC that has metastasized and is on continued mangement with oncology. He is requesting home health change SPT. Orders placed for now to be changed every 3 weeks. Will reassess patient and symptoms in 3 months. For now, and through shared decision making we are in agreement with no further workup or intervention at this time with care plan, aside from what was mentioned. Patient has no other voiced concerns or questions. Patient satisfied with plan. 08/12/2025 Metastatic renal cell carcinoma, unspecified laterality (ICD-10 - C64.9) Patient with complex history. He is s/p SPT placement due to neurogenic bladder. He reports continued imaging every 3 months with history of RCC that has metastasized and is on continued mangement with oncology/[facility]. Involving his incontinence concerns, suggested on moving forward with trialing Gemtesa samples. He will call back for prescription. Recommended on keeping close f/u to assess if further intervention is going to be needed at that time. Will send UA for PCR testing, and treat further if indicated. He will continue with home health changes for SPT at 16fr. For now, and through shared decision making we are in agreement with no further workup or intervention at this time with care plan, aside from what was mentioned. Patient has no other voiced concerns or questions. Patient satisfied with plan. CC note to PCP. 02/04/2025 Hypogonadism in male (ICD-10 - E29.1) Patient with complext history. He is s/p SPT placement due to neurogenic bladder. He reports continued imaging every 3 months with history of RCC that has metastasized and is on continued mangement with oncology/[facility]. Plan on gaining previous records and previous labs as he reports labs completed with PCP recently. He will continue with home health changes for SPT at 16fr. Will reassess patient and symptoms in 6 months. For now, and through shared decision making we are in agreement with no further workup or intervention at this time with care plan, aside from what was mentioned. Patient has no other voiced concerns or questions. Patient satisfied with plan. 08/12/2025 Hypogonadism in male (ICD-10 - E29.1) Patient with complex history. He is s/p SPT placement due to neurogenic bladder. He reports continued imaging every 3 months with history of RCC that has metastasized and is on continued mangement with oncology/[facility]. Involving his incontinence concerns, suggested on moving forward with trialing Gemtesa samples. He will call back for prescription. Recommended on keeping close f/u to assess if further intervention is going to be needed at that time. Will send UA for PCR testing, and treat further if indicated. He will continue with home health changes for SPT at 16fr. For now, and through shared decision making we are in agreement with no further workup or intervention at this time with care plan, aside from what was mentioned. Patient has no other voiced concerns or questions. Patient satisfied with plan. CC note to PCP. 11/05/2024 Encounter for attention to cystostomy (ICD-10 - Z43.5) Patient with complext history. He is s/p SPT placement due to neurogenic bladder. He reports continued imaging every 3 months with history of RCC that has metastasized and is on continued mangement with oncology. He is requesting home health change SPT. Orders placed for now to be changed every 3 weeks. Will reassess patient and symptoms in 3 months. For now, and through shared decision making we are in agreement with no further workup or intervention at this time with care plan, aside from what was mentioned. Patient has no other voiced concerns or questions. Patient satisfied with plan. 10/10/2024 Neurogenic bladder (ICD-10 - N31.9) Plan Of Treatment Pending Test Test Name Order Date Basic Metabolic Panel 10/10/2024 CBC w/ Auto Diff 10/10/2024 UA Reflex -- [id number] 10/10/2024 Electrocardiogram, 12 Lead Tracing-[id number] 10/10/2024 Next Appt Details Provider Name:BARRY Ortega KAYLIN Moody, 10/14/2025 11:00:00 AM, [address] [place], [address], Insurance Providers Payer Name Payer Address Payer Phone Subscriber Number Group Number Insured Name Patient Relationship to Insured Coverage Start Date Coverage End Date RR Medicare [address] [address] [place], [place] [id number] Lokesh Plummer Self - patient is the insured [place] [employer] [place] [address] [place] [id number] [phone] [id number] Lokesh Plummer Self - patient is the insured Medical (General) History Medical History History ICD Code Left Renal Cell Carcinoma mets to spine, pancreas, sternum, omentum, pericardium, right kidney 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
--- OUTSIDE RECORDS SUMMARY | 2025-09-13 14:13 | XMS_ITS | Data Portability ---
Author Organization [facility] Address [address] [facility], [facility] [address] [place] [address] Care Team Providers Care Hand Dry Cleaner Name Role Phone GUILLERMO BUI Primary Care Provider [phone] Assessment No assessment recorded. Plan of Treatment Reminders Order Date Submit Date Provider Last Modified By Organization Details Last Modified Time Details Appointments None recorded. Lab CMP, serum or plasma 2023 024 [facility], [address], [address], 4 15:29:36 CBC 2023 024 [facility], [address], [address], 4 15:45:21 Referral None recorded. Procedures None recorded. Surgeries None recorded. Imaging electrocard iogram 2023 024 [email or web address] [facility] [address] [place], [address], 4 10:13:48 XR, abdomen, complete 2023 024 [email or web address] [facility] ([facility] [address] [place], [address], 4 10:19:25 Medication Orders None recorded. Patient TargetsNo targets recorded. Patient InstructionsNo instructions recorded. Reason for Referral None Reported. Results Created Date Observation Date Name Description Value Unit Range Abnormal Flag Note LastModifiedBy Organization Detail LastModifiedTime 04/18/20 24 04/18/2024 CBC WBC 8.5 x10 4.5-10 .5 Not Available [facility] [address] [facility] 1, [place], [address], 04/18/2024 15:45:21 04/18/20 24 04/18/2024 CBC RBC 4.73 x10 4.30-5 .90 Not Available [facility] [address] [facility], [place], [address], 04/18/2024 15:45:21 04/18/20 24 04/18/2024 CBC HGB 11.5 g/dL 13.5-1 8.0 low Not Available [facility] [address] [facility], [place], [address], 04/18/2024 15:45:21 04/18/20 24 04/18/2024 CBC HCT 36.1 % 35.0-6 0.0 Not Available [facility] [address] [facility], [place], [address], 04/18/2024 15:45:21 04/18/20 24 04/18/2024 CBC MCV 76.3 fL 80.0-9 9.9 low Not Available [facility] [address] [facility], [place], [address], 04/18/2024 15:45:21 04/18/20 24 04/18/2024 CBC MCH 24.4 pg 27.0-3 2.0 low Not Available [facility] [address] [facility], [place], [address], 04/18/2024 15:45:21 04/18/20 24 04/18/2024 CBC MCHC 32.0 g/dL 32.0-3 6.0 Not Available [facility] [address] [facility], [place], [address], 04/18/2024 15:45:21 04/18/20 24 04/18/2024 CBC RDW 18.0 % 11.5-1 4.5 high Not Available [facility] [address] [address], [place], [address], 04/18/2024 15:45:21 04/18/20 24 04/18/2024 CBC plt 329.8 x10 150.0- 451.0 Not Available [facility] [address] [address], [place], [address], 04/18/2024 15:45:21 04/18/20 24 04/18/2024 CBC lymphocytes % 15.2 % 20.0-5 0.0 low Not Available [facility] [address] [address], [place], [address], 04/18/2024 15:45:21 04/18/20 24 04/18/2024 CBC granulcytes % 73.1 % 30.0-7 0.0 high Not Available [facility] [address] [address], [place], [address], 04/18/2024 15:45:21 04/18/20 24 04/18/2024 CBC monocytes % 9.0 % 2.0-10 .0 Not Available [facility] [address] [address], [place], [address], 04/18/2024 15:45:21 04/18/20 24 04/18/2024 CBC granulcytes# 6.2 x10 Not Lety ilable [facility] [address] [address], [place], [address], 04/18/2024 15:45:21 04/18/20 24 04/18/2024 CBC lymphocytes # 1.3 x10 Not Available [facility] [address] [facility] [place], [address], 04/18/2024 15:45:21 04/18/20 24 04/18/2024 CBC monocytes # 0.8 x10 Not Avai lable [facility] [address] [facility] [place], [address], 04/18/2024 15:45:21 04/18/20 24 04/19/2024 CMP (MALE ) glucose 101.0 mg/dL 60.0-9 9.0 high Not Available [facility] [address] [facility], [place], [address], 04/19/2024 15:29:36 04/18/20 24 04/19/2024 CMP (MALE ) BUN (blood urea nitrogen) 19.0 mg/dL 10.0-2 6.0 Not Available [facility] [address] [facility], [place], [address], 04/19/2024 15:29:36 04/18/20 24 04/19/2024 CMP (MALE ) creatinine (serum) 1.1 mg/dL 0.4-1. 5 Not Available [facility] [address] [facility], [place], [address], 04/19/2024 15:29:36 04/18/20 24 04/19/2024 CMP (MALE ) BUN/creatini ne ratio 16.81 ratio Not Available [facility] [address] [facility], [place], [address], 04/19/2024 15:29:36 04/18/20 24 04/19/2024 CMP (MALE ) eGFR calculated 76.[address] [facility] [address] [facility], [place], [address], 04/19/2024 15:29:36 04/18/20 24 04/19/2024 CMP (MALE ) total protein 7.5 g/dL 6.0-8. 5 Not Available [facility] [address] [facility], [place], [address], 04/19/2024 15:29:36 04/18/20 24 04/19/2024 CMP (MALE ) total bilirubin 0.4 mg/dL 0.2-1. 3 Not Available [facility] [address] [facility], [place], [address], 04/19/2024 15:29:36 04/18/20 24 04/19/2024 CMP (MALE ) albumin 4.1 g/dL 3.5-5. 5 Not Available [facility] [address] [facility], [place], [address], 04/19/2024 15:29:36 04/18/20 24 04/19/2024 CMP (MALE ) globulin 3.4 calc Not Available [facility] [address] [address], [place], [address], 04/19/2024 15:29:36 04/18/20 24 04/19/2024 CMP (MALE ) AST (SGOT) 24.0 U/L 0.0-46 .0 Not Available [facility] [address] [facility], [place], [address], 04/19/2024 15:29:36 04/18/20 24 04/19/2024 CMP (MALE ) altv (SGPT) 18.0 U/L 13.0-6 9.0 normal Not Available [facility] [address] [facility], [place], [address], 04/19/2024 15:29:36 04/18/20 24 04/19/2024 CMP (MALE ) A/G ratio 1.2 ratio Not Available [facility] [address] [facility], [place], [address], 04/19/2024 15:29:36 04/18/20 24 04/19/2024 CMP (MALE ) ALP phos 82.0 U/L 30.0-1 40.0 normal Not Available [facility] [address] [facility], [place], [address], 04/19/2024 15:29:36 04/18/20 24 04/19/2024 CMP (MALE ) calcium 9.7 mg/dL 8.4-10 .5 Not Available [facility] [address] [facility], [place], [address], 04/19/2024 15:29:36 04/18/20 24 04/19/2024 CMP (MALE ) sodium 141.0 mmol/ L 136.0- 145.0 Not Available [facility] [address] [facility], [place], [address], 04/19/2024 15:29:36 04/18/20 24 04/19/2024 CMP (MALE ) potassium 4.8 mmol/ L 3.5-5. 1 Not Available [facility] [address] [facility], [place], [address], 04/19/2024 15:29:36 04/18/20 24 04/19/2024 CMP (MALE ) chloride 103.0 mmol/ L 98.0-1 10.0 normal Not Available [facility] [address] [facility], [place], [address], 04/19/2024 15:29:36 04/18/20 24 04/19/2024 CMP (MALE ) C02 32.0 mmol/ L 22.0-3 1.0 high Not Available [facility] [address] [facility], [place], [address], 04/19/2024 15:29:36 04/18/20 24 04/19/2024 CMP (MALE ) anion gap 6.0 calc Not Available [facility] [address] [facility], [place], [address], 04/19/2024 15:29:36 04/18/20 24 04/19/2024 CMP (MALE ) osmolality 293.4 calc Not Available [facility] [address] [facility] [address], [place], [address], 04/19/2024 15:29:36 04/19/20 24 04/18/2024 XR, abdom en, compl ete No observ ation record ed. dcrase [facility] [address] [place], [address], 04/21/2024 08:54:14 10/11/20 24 10/11/2024 elect sheryl pickens am No observ ation record ed. [email or web address] [facility] [address] [place], [address], 10/11/2024 13:45:36 Result Notes None recorded. Problems Name Problem SNOMED Code Status Onset Date Resolution Date Notes Provider Name and Address Organization Details Recorded Time Low back pain 493024210 Active 024 Sukumar Castillo MD [address] [place], [address], [facility] 15:17:18 Abdominal pain 36976299 Active 024 Sukumar Castillo MD [address] [place], [address], [facility] 15:17:35 Problem Notes None recorded. Procedures Surgical History Date Name Laterality Status Provider Name and Address Organization Details Recorded Time 11/20/19 reconstruction of pelvic floor completed Maya Kirby [facility] 04/18/2024 14:49:26 excision of left kidney completed [facility] 04/18/2024 14:48:51 spinal fusion with graft completed [facility] 04/18/2024 14:48:56 [facility] spine [facility] 04/18/2024 14:49:17 Imaging Results None recorded. Procedure Notes None recorded. Medical Equipment None Reported. Allergies No known drug allergies Medications Name Sig Start Date Stop Date Status Note LastModified by Organization Details LastModified Time oxycodone 15 mg tablet Take 1 tablet every 6 hours by oral route. active Not Available Not Available No t Available tizanidin e active Not Available Not Available Not Available OxyContin daily 04/18 completed 0; Recorded 0 4:02PM by Ivania Gordillo, Office Visit; Not Available Not Available Not Available OxyContin 40 mg tablet,cr ush resistant ,extended release Take 1 tablet every 12 hours by oral route. active Not Available Not Available No t Available Vitals Date Recorded Body height Body mass index (BMI) Body weight Oxygen saturation Oxygen saturation in Arterial blood by Pulse oximetry Heart rate Respiratory rate Body temperature Systolic And Diastolic Provider Name and Address Organization Details Last Updated DateTime 4 179.07 cm 30.2 kg/m2 13085.3 3 g 97 % 97 % 101 /min 17 /min 98.1 [degF] 162/94 mm[Hg] [facility] 15:02:27 Social History Question Answer Notes LastModified by [employer] Details LastModified Time Tobacco Smoking Status Never Smoker [facility] 04/18/2024 14:48:36 What Was The Date Of Your Most Recent Tobacco Screening? 04/18/2024 Information not available 04/18/2024 Sex: Unknown Functional Status Question Answer Note LastModified by [employer] Details LastModified Time Do you use any illicit or recreational drugs? Yes CBD Information not available 04/18/2024 What is your level of alcohol consumption? None Information not available 04/18/2024 Mental Status None recorded. Family History Nothing Reported. Medical History Condition Response Coronary Artery Disease N Other N Gout N Kidney Stones N Blood Diseases N Hyperthyroidism N Breast Cancer N Blood Transfusion N Depression N Hypothyroidism N Lung Disease N COPD N Developmental or Behavioral Disorders N Defects or Inherited Disease N Breast Problem N Difficulty Swallowing N Anesthesia Complications N Anxiety Disorder N Meniere's disease N Muscle, Joint, or Bone Problems N Vision or Eye Problems N Arthritis N Infertility N Polyps N Cancer Y Stroke N Varicosities N Endometriosis N Bladder or Kidney Problems N High Cholesterol N Liver Disease N Fibromyalgia N Headaches N Kidney Disease N Allergies/Hayfever N Heart Problems N Ear or Hearing Problems N Hospitalizations N Thyroid Problems N GI Problems N ADD/ADHD N Skin Problems N Eating Disorder N Anemia N Constipation N Mental Illness N Ovarian Cancer N Diabetes N Bedwetting N Seizures/Epilepsy N Tuberculosis N Eczema N Diverticulitis N Abuse/Domestic Violence N Asthma N Reflux/GERD N Hepatitis N Heart Disease N Pulmonary Embolism N Pre-Eclampsia N Hypertension N Chronic Ear Infections N Osteoporosis N Chicken Pox N Autism Spectrum Disorder (ASD) N Thrombophilias N Immunizations Vaccine Type Date Status Note Provider Nam e and Address Organization Details Recorded Time MMR 08/05/1983 brian page [facility] 04/18/2024 14:42:12 Tdap 07/08/1997 completed [facility] 04/18/2024 14:42:12 Tdap 10/09/2014 completed Maya page [facility] JeffL[facility]ioCAntonio 04/18/2024 14:42:12 polio, unspecified formulation 1982 brian page [facility] NovaCAntonio 04/18/2024 14:42:12 polio, unspecified formulation 01/06/1984 brian page [facility] JeffL[facility]ioCAntonio 04/18/2024 14:42:12 polio, unspecified formulation 1982 brian page [facility] 04/18/2024 14:42:12 polio, unspecified formulation 1982 completed Maya Kirby null, [facility] 04/18/2024 14:42:12 Hep B, adult 01/13/2015 completed Maya Rolfcherie r null, [facility] 04/18/2024 14:42:12 Hep A, adult 01/13/2015 completed Maya Rolfile r null, [facility] 04/18/2024 14:42:12 DTaP 1982 completed Maya Rolfgisel null, [facility] 04/18/2024 14:42:12 DTaP 01/06/1984 completed Maya Rolfgisel null, [facility] 04/18/2024 14:42:12 DTaP 03/27/1987 completed Maya Kirby null, [facility] 04/18/2024 14:42:12 DTaP 1982 completed Maya Rolfgisel null, [facility] 04/18/2024 14:42:12 DTaP 1982 completed Maya Rolfgisel camilo, [facility] 04/18/2024 14:42:12 Past Encounters Encounter ID Performer Location Encounter Start Date Encounter Closed Date Diagnosis/Indication Diagnosis SNOMED-CT Code Diagnosis ICD10 Code Diagnosis IMO Codes Diagnosis Note [id number] Sukumar Castillo MD [facility] ([facility] [address] [place] [address] 04/18/2024 14:32:18 04/18/2024 16:19:41 Low back pain 272183329 M54.50 Continue current pain management Abdominal pain 68175777 R10.9 X-rays of the abdomen was obtained. The patient does have some stool retention in the ascending colon. He has significan t hardware from his multiple surgeries. No evidence of bowel obstructio n or any other significan t abnormalit y. Patient was reassured by x-ray results. Blood counts did not show elevated white count that would be consistent with infection. Patient has follow-up with oncology with imaging next week. [id number] Arie Carr MD [facility] ([facility]) [address] [place] [address] 10/11/2024 13:29:22 10/14/2024 10:13:48 Pre-surgery evaluation 941608701 Z01.818 Renal cell carcinoma 702 758512 C64.9 Health Concerns Section Related Observation LastModified by Organization Detai ls LastModified Time None Recorded Concern Status LastModified by Organization Details LastModified Time None Recorded Advance Directives Directive None Recorded Payers Insurance Date Sequence Insurance Name Policy Number Policy [place] Covered Member ID [place] Member ID Guarantor Name 11/10/2024 1 [facility] MEDICARE-[employer] (MEDICARE) Lokesh Sobeida Plummer [id number] Lokesh Plummer 10/11/2024 [place] L[place]h Sobeida Plummer [id number] Lokesh Plummer 10/11/2024 [place] - [facility] (MEDICARE) Lokesh Plummer [id number] 4 Lokesh Plummer 10/28/2024 2 [facility] [employer] [facility] [employer] Lokesh Plummer [id number] Lokesh Plummer 04/19/2024 [place] - [facility] (MEDICARE) Lokesh Plummer [id number] [place]h Sobeida Plummer 11/10/2024 1 [place]h Sobeida Plummer [id number] Lokesh Sobeida Plummer Notes Date Note Type Note Provider Name and Address Organization Details Recorded Time 4 text/html Back PainReported by PatientHPIFor severity, patient reportsworsening,interfer es with sleep, andinterferes with work. For location, patient reportsthoracic bilateralandlumbar bilateral. For quality, patient reportssharp,pressure, andstabbing. For duration, patient reports2 days. For timing, patient reportsacuteandfirst episode. For context, patient reportsprior back problems. For alleviating factors, patient reportsposition change. For aggravating factors, patient reportsflexing backandextending back. For previous injury, patient reportsprevious surgery/procedure date: ___andprevious surgery/procedure type:__.ROS as noted in the HPI Pt reports pain started with the last surgery December 2024. States he sees the physician who did the procedure, he will see next week and will have an MRI done at that time. The last 2 nights, right before bed, he was having sharp back pain, more the left than the right. Pain is tight, burning and is tight into abdomen. Has tried the prescription pain medication with no relief. Was making the patient nauseated due to how intense. States he was unable to lay down. Abdominal pain has improved. Sukumar Castillo MD [address] [place] [address], [phone], [facility] 04/18/2024 16:13:17
--- OUTSIDE RECORDS SUMMARY | 2025-09-13 14:13 | XMS_ITS ---
Author Organization [facility] Address [address] [facility] [address] Attn: Epic Prelude ADT JORGE SANTOS [address] Care Team Providers Care Field Service Technician Poultry Name Role Phone Celestino Hurst DO Primary Care Provider [phone] Active Problems Problem Noted Date Diagnosed Date Chronic midline low back pain without sciatica 0 01/06/2017 Cancer, metastatic to bone 11/04/2016 Renal cell carcinoma of left kidney 09/02/2016 Renal cell cancer 08/26/2016 Current Treatment and Therapy Plans No current plan information found. Past Treatment and Therapy Plans No past plan information found. Lifetime Dose Tracking * Chemical Lifetime Dose Automatic Entry Manual Entr y Effective Dose 13.2 mSv 0 mSv 13.2 mSv Total DLP 1,072 DLP 0 DLP 1,072 DLP CTDIvol Max 13.7 mGy 0 mGy 13.7 mGy CTDIvol Min 13 mGy 0 mGy 13 mGy
--- OUTSIDE RECORDS SUMMARY | 2025-09-13 14:13 | XMS_ITS | Clinical Summary ---
Author Organization [facility] Address [address] [place] [address] Phone Care Team Providers Care Contract Processor Name Role Phone Celestino Hurst DO Primary Care Provider [phone] Allergies No known active allergies Medications Phentermine 37.5 mg Capsule Take by mouth. Active oxyCODONE IR (OXY-IR) 5 mg Capsule Take 1 Capsule (5 mg) by mouth every 8 hours as needed for Pain. Max Daily Amount: 15 mg 60 Capsule 01/06/2017 Active Active Problems Problem Noted Date Diagnosed Date Chronic midline low back pain without sciatica 0 01/06/2017 Cancer, metastatic to bone 11/04/2016 Renal cell carcinoma of left kidney 09/02/2016 Renal cell cancer 08/26/2016 Social History Tobacco Use Types Packs/Day Years Used Date Smoking Tobacco: Never Assessed Sex and Gender Information Value Date Recorded Sex Assigned at Not on file Legal Sex Male 2:34 PM CDT Gender Identity Not on file Sexual Orientation Not on file Last Filed Vital Signs Vital Sign Reading Time Taken Comments Blood Pressure 126/84 01/06/2017 11:08 AM COMMUNICATIONS TOWER TECHNICIAN Pulse 124 01/06/2017 11:08 AM COMMUNICATIONS TOWER TECHNICIAN Temperature 36.5 C (97.7 F) 01/06/2017 11:08 AM COMMUNICATIONS TOWER TECHNICIAN Respiratory Rate - - Oxygen Saturation 98% 01/06/2017 11:08 AM COMMUNICATIONS TOWER TECHNICIAN Inhaled Oxygen Concentration - - Weight 97.6 kg (215 lb 3.2 oz) 01/06/2017 11:08 AM COMMUNICATIONS TOWER TECHNICIAN Height 182.9 cm (6') 01/06/2017 11:08 AM COMMUNICATIONS TOWER TECHNICIAN Body Mass Index 29.19 01/06/2017 11:08 AM COMMUNICATIONS TOWER TECHNICIAN Plan of Treatment Health Maintenance Due Date Last Done Comments Pre-Diabetes and Diabetes Screening 1982 HEPATITIS B VACCINES (1 of 3 - 19+ 3-dose series) 2001 01/13/2015 HPV VACCINES (1 - Risk 3-dos e SCDM series) 2009 DTAP/TDAP/TD VACCINES (8 - T d or Tdap) 10/09/2024 10/09/2014, 07/08/1997, 03/27/1987, Additional history exists INFLUENZA VACCINE (#1) 2025 Insurance [employer] CHOICE POS Care Teams Contract Processor Relationship Specialty Start Date End Date Celestino Hurst DO [address] [place] [id number] PCP - General Family Practice 10/28/16
--- OUTSIDE RECORDS SUMMARY | 2025-09-13 14:13 | XMS_ITS | Clinical Summary ---
Author Organization [facility] Address [address] [facility] Attn: Epic Prelude ADT JORGE SANTOS [address] Care Team Providers Care Fraud Representative Name Role Phone Celestino Hurst DO Primary Care Provider [phone] Allergies No known active allergies Medications oxyCODONE IR (OXY-IR) 5 mg Capsule Take 1 Capsule (5 mg) by mouth every 8 hours as needed for Pain. Max Daily Amount: 15 mg 60 Capsule 0 01/06/2017 Active Phentermine 37.5 mg Capsule Take by mouth. 01/06/2017 Active Active Problems Problem Noted Date Diagnosed Date Chronic midline low back pain without sciatica 0 01/06/2017 Cancer, metastatic to bone 11/04/2016 Renal cell carcinoma of left kidney 09/02/2016 Renal cell cancer 08/26/2016 Social History Tobacco Use Types Packs/Day Years Used Date Smoking Tobacco: Never Assessed Sex and Gender Information Value Date Recorded Sex Assigned at Not on file Legal Sex Male 12:22 AM RELAY ASSEMBLER Gender Identity Not on file Sexual Orientation Not on file Last Filed Vital Signs Vital Sign Reading Time Taken Comments Blood Pressure 126/84 01/06/2017 11:08 AM RELAY ASSEMBLER Pulse 124 01/06/2017 11:08 AM RELAY ASSEMBLER Temperature 36.5 C (97.7 F) 01/06/2017 11:08 AM RELAY ASSEMBLER Respiratory Rate - - Oxygen Saturation - - Inhaled Oxygen Concentration - - Weight 97.6 kg (215 lb 3.2 oz) 01/06/2017 11:08 AM RELAY ASSEMBLER Height 182.9 cm (6') 01/06/2017 11:08 AM RELAY ASSEMBLER Body Mass Index 29.19 01/06/2017 11:08 AM RELAY ASSEMBLER Plan of Treatment Health Maintenance Due Date Last Done Comments DTAP/TDAP/TD VACCINES (1 - Tdap) 2001 HEPATITIS B VACCINES (1 of 3 - 19+ 3-dose series) 04/20 HPV VACCINES (1 - 3-dose SCDM series) 2009 INFLUENZA VACCINE (#1) 2025 Care Teams Fraud Representative Relationship Specialty Start Date End Date Celestino Hurst DO [address] [place] [address] PCP - General Family Practice 10/28/16
[2025-09-13 14:17] VITALS: BP 110/70; PULSE 112; RESP 16; TEMP 36.7; O2SAT 92; BMI 27.8
[2025-09-13 14:39] LABS: Hematocrit 21.6 % (37-53); Mean Corpuscular HGB Conc 28.7 g/dL (30-55); Mean Corpuscular Hemoglobin 23.5 pg (27-33); Mean Corpuscular Volume 81.8 fl (82-101); Nucleated Red Blood Cells % 0 %; Platelet Count 512 10^3/cmm (157-399); Red Blood Count 2.64 10^6/uL (3.85-5.65); White Blood Count 21.08 10^3/uL (3.29-11.43)
[2025-09-13 14:45] LABS: Hemoglobin 6.20 g/dL (11.27-16.99)
--- NOTE | 2025-09-13 14:54 | W.ED.BACK ---
HPI - Back Pain/Injury General: Chief Complaint: Back Pain/Injury Stated Complaint: Middle back pain Time Seen by Provider: 09/13/25 14:22 History of Present Illness: 45-year-old male with a history of renal cell carcinoma with multiple metastasis. He has metastasized to his spine resulting in paraplegia. He has a lump in the lower thoracic spine that is extremely tender swelling she has has begun to drain it spontaneously open area at the midline. He has previously had thoracic spine and lumbar spine stabilization surgeries related to these metastasis. He has markedly worse pain today. He is mostly interested in pain control but he is not sure he wants any imaging done. He is on palliative treatment for his renal cell carcinoma at this time. Associated symptoms: Deny abdominal pain, chills, dysuria, fever(s) or urinary urgency Related Data Home Medications ?Medication ?Instructions ?Recorded ?Confirmed belzutifan 40 mg tablet (Welireg) 40 mg PO DAILY 05/20/24 09/15/25 gabapentin 600 mg tablet 600 mg PO TID 10/22/24 09/15/25 Linezolid/Ciprofloxacin/Itraconazole See Rx Instructions .Route .COMPLEX 09/13/25 09/15/25 linezolid 600 mg tablet (Zyvox) 600 mg PO TID 09/13/25 09/15/25 oxycodone 80 mg tablet,crush 160 mg PO TID 09/13/25 09/15/25 resistant,extended release 12 hr (OxyContin) Previous Rx's ?Medication ?Instructions ?Recorded air loss mattress #1 ea 07/30/24 hospital bed, adjustable #1 ea 07/30/24 lidocaine HCl 4 % topical cream 1 applic topical TID PRN pain from 10/22/24 (Aspercreme (lidocaine HCl)) shingles #120 grams tizanidine 6 mg capsule 6 mg PO .QPM PRN muscle spasticity 02/24/25 #30 caps oxycodone 30 mg tablet 30 mg PO Q4H 1 day #6 tabs 07/24/25 prednisone 20 mg tablet 20 - 30 mg (1 - 1.5 x 20 mg) PO 08/20/25 DAILY PRN inflammation #90 tabs calcitonin (salmon) 200 1 spray intranasal DAILY 08/21/25 unit/actuation nasal spray metastatis bone pain #3.7 mL lorazepam 1 mg tablet 1 mg PO DAILY PRN 09/08/25 anxiety/nervousness/stress #30 tabs bumetanide 1 mg tablet 1 mg PO DAILY PRN edema #30 tabs 09/11/25 methylphenidate HCl 10 mg tablet 10 mg PO BID sedation from 09/11/25 (Ritalin) meds/low energy from cancer 30 days #60 tabs oxygen supplementation, tubing, #1 ea 09/11/25 nasal canula fentanyl 25 mcg/hr transdermal 1 patch transdermal Q72H #5 ea 09/13/25 patch Allergies Allergy/AdvReac Type Severity Reaction Status Date / Time No Known Allergies Allergy Verified 09/15/25 14:04 Review of Systems Const: Denies: fever(s) or chills Card: Denies: chest pain Resp: Denies: dyspnea GI: Denies: abdominal pain : Denies: dysuria, urinary frequency or urinary urgency Musc: Reports: back pain; Denies: neck pain Skin/Breast: Denies: rash PFSH ED PFSH: Medical History Closed nondisplaced fracture of fifth left metatarsal bone Diverticulitis of colon Family History Denies family history of Diabetes CAD (coronary artery disease) Clotting disorder Dementia Hyperlipidemia Psychiatric illness Chronic kidney disease (CKD) Suicide Anesthesia complication Bleeding disorder Family history of premature coronary artery disease Lung disease Cancer Hypertension Stroke Social History Smoking and tobacco/nicotine status: never used tobacco/nicotine Second hand smoke exposure: No Alcohol intake: never Substance/Drug Use: never Physical Exam Const: GENERAL APPEARANCE: cooperative ORIENTATION/CONSCIOUSNESS: Yes awake, Yes oriented to person, Yes oriented to place and Yes oriented to time HENMT: COMMON NORMALS: normocephalic, atraumatic and hearing grossly normal bilaterally HEAD & SCALP: normocephalic and atraumatic Resp: COMMON NORMALS: normal respiratory effort, No retractions, No use of accessory muscles and clear to auscultation bilaterally AUSCULTATION: clear to auscultation bilaterally Cardio: COMMON NORMALS: regular rate, regular rhythm and No murmurs present (Cardio) RATE: regular rate RHYTHM: regular rhythm GI: COMMON NORMALS: Soft to palpation and No hepatosplenomegaly present AUSCULTATION: Yes normoactive bowel sounds PALPATION: Yes Soft to palpation, No Tenderness to palpation present (GI), No Guarding due to palpation present (GI) and Yes No hepatosplenomegaly present Extremity: COMMON NORMALS: normal to inspection, capillary refill normal, no clubbing, cyanosis or edema, no calf tenderness and no pedal edema Neuro: SENSORIUM/ORIENTATION: Yes oriented to person, Yes oriented to place and Yes oriented to time Skin: COMMON NORMALS: no rashes or lesions noted GENERAL SKIN EXAM: no rashes or lesions noted Course Vital Signs: Vital signs: Vital Signs Temperature 98.1 F 09/13/25 14:17 Pulse Rate 92 09/13/25 22:10 Respiratory Rate 16 09/13/25 14:17 Blood Pressure 120/58 09/13/25 22:10 Pulse Oximetry 95 09/13/25 22:10 Oxygen Delivery Me thod Nasal Cannula 09/13/25 18:02 Oxygen Flow Rate 2 09/13/25 18:02 MDM - Back Pain/Injury Medical Decision Making Extensive metastasis to thoracic and lumbar spine. Discussed with the patient and his , he does not want to pursue anything further on this. His understanding from last time he had talked to his surgeons at and his previous back surgery with there is nothing really left to do as far as protecting his spinal cord. He would rather focus on pain control. Discharge patient home with fentanyl patches continue his other pain medications for breakthrough and follow-up with his primary care doctor for further adjustments to control pain adequately. Labs 09/13/25 14:31 09/13/25 14:31 Radiology Impressions Lumbar Spine CT 09/13/25 16:27 IMPRESSION: 1. Worsened metastatic disease in the L1 and L2 vertebral bodies and left pedicles. Tumor extension into the left neural foramina results in severe narrowing. 2. Stable sclerosis and mild pathologic compression fracture in the L3 vertebral body with chronic destruction and/or resection of the posterior elements. 3. Stable lytic metastatic lesion in the right iliac bone. 4. No severe spinal canal stenosis at any level. Thoracic Spine CT 09/13/25 16:27 IMPRESSION: 1. Significantly worse metastatic disease in the T8-T12 spine with new pathologic compression fractures involving T9 and T10. 2. Estimated severe spinal canal narrowing from T7-T8 through T10-T11 due to encasement by tumor. Evaluation is limited due to significant hardware artifact. 3. Significantly worsened severe soft tissue metastatic disease surrounding the T8-T12 spine with direct extension into the pleural spaces and destruction of multiple posterior right ribs. 4. Severe bilateral pleural metastatic disease with large left and small right malignant effusions. 5. Worsened pulmonary metastatic disease. 6. Stable metastatic lesions in the sternum and left 5th rib. Laboratory Results WBC 21.08 10^3/uL (3.29-11.43) H 09/13/25 14: RBC 2.64 10^6/uL (3.85-5.65) L 09/13/25 14: Hgb 6.20 g/dL (11.27-16.99) L* 09/13/25 14: Hct 21.6 % (37-53) L 09/13/25 14: MCV 81.8 fl (82-101) L 09/13/25 14: MCH 23.5 pg (27-33) L 09/13/25 14: MCHC 28.7 g/dL (30-55) L 09/13/25 14: RDW 19.5 % (12.1-15.1) H 09/13/25 14: Plt Count 512 10^3/cmm (157-399) H 09/13/25 14: MPV 9.8 fL (7.4-10.4) 09/13/25 14: Neut % (Auto) 85.8 % 09/13/25 14: Lymph % (Auto) 4.9 % 09/13/25 14: [place] % (Auto) 7.1 % 09/13/25 14: Eos % (Auto) 1.5 % 09/13/25 14: Baso % (Auto) 0.2 % 09/13/25 14: Neut # (Auto) 18.09 10^3/uL (1.8-7.7) H 09/13/25 14: Lymph # (Auto) 1.0 10^3/uL (0.8-4.8) 09/13/25 14: [place] # (Auto) 1.5 10^3/uL (0.2-0.9) H 09/13/25 14:31 Eos # (Auto) 0.3 10^3/uL (0.0-0.8) 09/13/25 14: Baso # (Auto) 0.1 10^3/uL (0.0-0.1) 09/13/25 14: Nucleated RBC % (auto) 0 % 09/13/25 14: Nucleated RBCs # 0.0 /100WBC 09/13/25 14:31 Sodium 131 mmol/L (136-145) L 09/13/25 14: Potassium 4.5 mmol/L (3.5-5.1) 09/13/25 14: Chloride 91 mmol/L (98-107) L 09/13/25 14: Carbon Dioxide 27 mmol/L (22-29) 09/13/25 14: Anion Gap 17.5 (5-19) 09/13/25 14: BUN 6 mg/dL (6-20) 09/13/25 14: Creatinine 0.5 mg/dL (0.7-1.2) L 09/13/25 14:31 GFR Calculation 181.5 mL/min (90-130) H 09/13/25 14: Glucose 134 mg/dL (65-115) H 09/13/25 14: Calculated Osmolality 272 mOsm/kg (285-295) L 09/13/25 14: Calcium 9.1 mg/dL (8.5-10.5) 09/13/25 14: Total Bilirubin 0.3 mg/dL (0.15-1.2) 09/13/25 14: AST 11 U/L (0-40) 09/13/25 14: ALT 9 U/L (0-41) 09/13/25 14:31 Alkaline Phosphatase 154 U/L (40-130) H 09/13/25 14:31 Creatine Kinase 25 U/L (39-308) L 09/13/25 14:31 Total Protein 6.4 g/dL (6.6-8.7) L 09/13/25 14:31 Albumin 3.0 g/dL (3.5-5.2) L 09/13/25 14: Globulin 3.4 g/dL (1.3-4.6) 09/13/25 14:31 All radiology interpretation(s) finalized by discharge Discharge Plan Discharge Patient Disposition: Home Clinical Impression: Metastatic renal cell carcinoma to bone Condition: Stable Prescriptions: New fentanyl 25 mcg/hr patch 72 hour 1 patch transdermal Q72H Qty: 5 0RF No Action tizanidine 6 mg capsule 6 mg PO .QPM PRN (Reason: muscle spasticity) Qty: 30 5RF methylphenidate HCl [Ritalin] 10 mg tablet 10 mg PO BID 30 Days Qty: 60 0RF bumetanide 1 mg tablet 1 mg PO DAILY PRN (Reason: edema) Qty: 30 1RF (DME) oxygen supplementation, tubing, nasal canula See Rx Instructions .Route .MEDSUPPLY Qty: 1 0RF Rx Instructions: As directed gabapentin 600 mg tablet 600 mg PO TID oxycodone 30 mg tablet 30 mg PO Q4H 1 Days Qty: 6 0RF (DME) hospital bed, adjustable See Rx Instructions .Route .MEDSUPPLY Qty: 1 0RF Rx Instructions: use as directed for daily care and prevention of health problems. (DME) air loss mattress See Rx Instructions .Route .MEDSUPPLY Qty: 1 0RF Rx Instructions: As directed for prevention and tx of pressure ulcers. lidocaine HCl [Aspercreme (lidocaine HCl)] 4 % cream 1 applic topical TID PRN (Reason: pain from shingles) Qty: 120 1RF prednisone 20 mg tablet 20 - 30 mg PO DAILY PRN (Reason: inflammation) Qty: 90 1RF calcitonin (salmon) 200 unit/actuation spray,non-aerosol 1 spray intranasal DAILY Qty: 3.7 3RF lorazepam 1 mg tablet 1 mg PO DAILY PRN (Reason: anxiety/nervousness/stress) Qty: 30 1RF Welireg 40 mg tablet 40 mg PO DAILY linezolid [Zyvox] 600 mg tablet 600 mg PO TID Linezolid/Ciprofloxacin/Itraconazole powder See Rx Instructions .ROUTE .COMPLEX Rx Instructions: APPLY 2 GRAMS TO INFECTION SITE. PERFORM 1-2 TIMES DAILY oxycodone [OxyContin] 80 mg tablet,oral only,ext.rel.12 hr 160 mg PO TID Discharge Orders: Discharge ED (Routine); Ordered 09/13/25 Ordered By: John Paul Ceja Referrals: Celestino Hurst, [Primary Care Provider, [facility]] - 1-3 days Patient Instructions: Cancer Pain (ED), Opioid Safety, Pain Management, Patient Portal & Benjamin Instructions Activity Restrictions/Additional Instructions: Try the Durogesic patch as we discussed. Call your doctor on Monday for a follow-up appointment. You may need to adjust your dosage of extended release oxycodone with the patch in place. Return for any problems, especially fever. Print Language: Arabic Coding Level of Care Code ED Director Of [employer] for Jose Fletcher
[2025-09-13 15:00] LABS: Alanine Aminotransferase 9 U/L (0-41); Albumin Level 3.0 g/dL (3.5-5.2); Alkaline Phosphatase 154 U/L (40-130); Anion Gap 17.5 (5-19); Aspartate Amino Transferase 11 U/L (0-40); Blood Urea Nitrogen 6 mg/dL (6-20); Calcium 9.1 mg/dL (8.5-10.5); Carbon Dioxide 27 mmol/L (22-29); Chloride 91 mmol/L (98-107); Creatinine Clr Calc Pharmacy 225.6716; Globulin 3.4 g/dL (1.3-4.6); Glucose 134 mg/dL (65-115); Osmolality Calculated 272 mOsm/kg (285-295); Potassium 4.5 mmol/L (3.5-5.1); Sodium 131 mmol/L (136-145); Total Protein 6.4 g/dL (6.6-8.7)
[2025-09-13] MEDS: HYDROmorphone 0.5 MG/0.5 ML INJ 1 MG IVP ×2 (15:29→16:25)
--- NOTE | 2025-09-13 16:27 | CTR_ITS ---
PROCEDURE INFORMATION: Exam: CT Thoracic Spine With Contrast Exam date and time: 09/13/2025 5:31 PM Age: 45 years old Clinical indication: Pain in thoracic spine; Prior surgery; Surgery date: 6+ months; Surgery type: Spinal fusion; Additional info: Renal cell metastasis to spine increasing pain TECHNIQUE: Imaging protocol: Computed tomography of the thoracic spine with contrast. Radiation optimization: All CT scans at this facility use at least one of these dose optimization techniques: automated exposure control; mA and/or kV adjustment per patient size (includes targeted exams where dose is matched to clinical indication); or iterative reconstruction. Contrast material: OMNIPAQUE 350; Contrast volume: 70 ml; Contrast route: INTRAVENOUS (IV); COMPARISON: 1. MR spine 06/16/2024 3:[address] chest abdpel w/*[id number] 04/03/2025 2:28 PM RADIATION DOSE METRICS: Total DLP (mGy-cm): 688.7 FINDINGS: Bones/joints: Leftward curvature of the upper thoracic spine. Larger destructive lesion destroying the majority of the T8 vertebral body with extension into the right pedicle, transverse process, lamina, and spinous process. New severe pathologic compression fracture of T9 with destruction of the bilateral pedicles, transverse processes, and lamina. New mild T10 pathologic compression fracture with destruction of the bilateral pedicles, transverse processes, and lamina. Slightly worsened destructive lesion in the T11 vertebral body with destruction of the bilateral pedicles, transverse processes, and lamina. Stable lytic lesion in the T12 vertebral body with extension into the bilateral pedicles, transverse processes, and lamina. Posterior mechanical fusion with pedicle screws and stabilization rods at T8 through L1, with no pedicle screws at T11 and T12 levels. The T9 pedicle screws extend into the T8-T9 disc space. Posterior right 8th rib fracture. Large enhancing soft tissue mass encompassing the posterior elements and vertebral bodies from T6 into the lumbar region. Destruction of multiple posterior bilateral ribs. Stable mixed lytic and sclerotic lesion in the body of the sternum. Stable lesion with pathologic rib fracture in the anterior left 5th rib. T1-T2: No significant disc bulge or herniation. No severe spinal canal stenosis. No significant neural foraminal narrowing. T2-T3: No significant disc bulge or herniation. No severe spinal canal stenosis. No significant neural foraminal narrowing. T3-T4: No significant disc bulge or herniation. No severe spinal canal stenosis. No significant neural foraminal narrowing. T4-T5: No significant disc bulge or herniation. No severe spinal canal stenosis. No significant neural foraminal narrowing. T5-T6: No significant disc bulge or herniation. No severe spinal canal stenosis. No significant neural foraminal narrowing. T6-T7: No significant disc bulge or herniation. No severe spinal canal stenosis. No significant neural foraminal narrowing. T7-T8: Severe narrowing of the spinal canal due to encasement by tumor. Severe narrowing of the bilateral neural foramina due to tumor. T8-T9: Severe narrowing of the spinal canal due to encasement by tumor. Severe narrowing of the bilateral neural foramina due to tumor. T9-T10: Severe narrowing of the spinal canal due to encasement by tumor. Severe narrowing of the bilateral neural foramina due to tumor. T10-T11: Severe narrowing of the spinal canal due to encasement by tumor. Severe narrowing of the bilateral neural foramina due to tumor. T11-T12: Moderate narrowing of the spinal canal due to encasement by tumor. Severe narrowing of the bilateral neural foramina due to tumor. T12-L1: No significant disc bulge or herniation. No severe spinal canal stenosis. No significant neural foraminal narrowing. Lungs: Increased multiple bilateral pulmonary nodules measuring up to 12 mm. Partial collapse of the right lower lobe. Collapse of the left lower lobe. Calcified granulomas in the right lung. Pleural spaces: Direct extension of neoplasm into the bilateral neural spaces with widespread pleural metastasis, [id number]. Large left and small right pleural effusions. Soft tissues: Unremarkable. CT/CT thoracic spine w con [id number] IMPRESSION: 1. Significantly worse metastatic disease in the T8-T12 spine with new pathologic compression fractures involving T9 and T10. 2. Estimated severe spinal canal narrowing from T7-T8 through T10-T11 due to encasement by tumor. Evaluation is limited due to significant hardware artifact. 3. Significantly worsened severe soft tissue metastatic disease surrounding the T8-T12 spine with direct extension into the pleural spaces and destruction of multiple posterior right ribs. 4. Severe bilateral pleural metastatic disease with large left and small right malignant effusions. 5. Worsened pulmonary metastatic disease. 6. Stable metastatic lesions in the sternum and left 5th rib.
--- NOTE | 2025-09-13 16:27 | CTR_ITS ---
PROCEDURE INFORMATION: Exam: CT Lumbar Spine With Contrast Exam date and time: 09/13/2025 5:31 PM Age: 45 years old Clinical indication: Low back pain; Prior surgery; Surgery date: 6+ months; Surgery type: Spinal fusion; C/O worsening lower back pain. History of renal cancer with metastasis to spine. ; Additional info: Renal cell metastasis to lumbar spine TECHNIQUE: Imaging protocol: Computed tomography of the lumbar spine with contrast. Radiation optimization: All CT scans at this facility use at least one of these dose optimization techniques: automated exposure control; mA and/or kV adjustment per patient size (includes targeted exams where dose is matched to clinical indication); or iterative reconstruction. Contrast material: OMNI 350; Contrast volume: 100 ml; Contrast route: INTRAVENOUS (IV); COMPARISON: 1. MR spine 06/16/2024 3:[address] chest abdpel w/*[id number] 04/03/2025 2:28 PM RADIATION DOSE METRICS: Total DLP (mGy-cm): 1009.8 FINDINGS: Bones/joints: Worsened destructive lesions in the L1 and L2 vertebral bodies without pathologic fracture, with extension into the left pedicles and facets.. Stable sclerosis and mild pathologic compression fracture in the L3 vertebral body with stable destruction of the bilateral pedicles and posterior elements. Posterior mechanical and bony fusion extending from the thoracic levels to L5. Bilateral pedicle screws at L1, L2, L4, and L5. Left pedicle screw at L3. L3 decompressive laminectomies. Stable lytic lesion in the right iliac bone. Stable hardware in the right iliac bone. T12-L1: Soft tissue tumor extension along the posterior surgical defect at the T12-L1 level. L1-L2: Tumor extension into the left paravertebral soft tissues and neural foramen. Severe left neural foraminal narrowing. Mild spinal canal stenosis. No right neural foraminal narrowing. L2-L3: Tumor extension into the left neural foramen. Severe left neural foraminal narrowing. Mild spinal canal stenosis. No right foraminal narrowing. L3-L4: No spinal canal stenosis. No neural foraminal narrowing. L4-L5: No disc bulge. No spinal canal stenosis. No neural foraminal narrowing. L5-S1: No significant disc bulge or herniation. No severe spinal canal stenosis. No significant neural foraminal narrowing. Kidneys and ureters: Left nephrectomy. Intraperitoneal space: Postsurgical scar in the posterior lumbar region. Soft tissues: Unremarkable. CT/CT lumbar spine w con [id number] IMPRESSION: 1. Worsened metastatic disease in the L1 and L2 vertebral bodies and left pedicles. Tumor extension into the left neural foramina results in severe narrowing. 2. Stable sclerosis and mild pathologic compression fracture in the L3 vertebral body with chronic destruction and/or resection of the posterior elements. 3. Stable lytic metastatic lesion in the right iliac bone. 4. No severe spinal canal stenosis at any level.
[2025-09-13] MEDS: iohexol 350 mg/mL 500 mL Btl (per mL) IV (17:46)
[2025-09-13 18:02] VITALS: BP 105/60; PULSE 94; O2SAT 92
[2025-09-13 22:10] VITALS: BP 120/58; PULSE 92; O2SAT 95
== END 2025-09-13 22:11 | disposition home or self-care (01) ==
PROVIDERS: Emergency Provider Family Medicine; PCP Family Medicine
DX: C64.9 Malignant neoplasm of unspecified kidney, except renal pelvis (principal); C79.51 Secondary malignant neoplasm of bone
CPT/HCPCS: 36415; 72129; 72132; 80053; 82550; 85025; 96374; 96375; 96376; 99285; J0780; J1171; J9999

== ENCOUNTER → 2025-09-15 14:02 | Outpatient (BNVA) | payer MEDICARE, OTHER, SELFPAY | PROVIDERS: PCP Family Medicine; Visit Provider Specialist | DX: M47.14 Other spondylosis with myelopathy, thoracic region (principal); G83.10 Monoplegia of lower limb affecting unspecified side; K63.2 Fistula of intestine; D50.9 Iron deficiency anemia, unspecified; C79.51 Secondary malignant neoplasm of bone; C64.9 Malignant neoplasm of unspecified kidney, except renal pelvis | CPT/HCPCS: 99215 ==

== ENCOUNTER 2025-09-16 08:58 | Oncology outpatient (recurring) (ONCR) | payer MEDICARE, OTHER, SELFPAY ==
[2025-09-16] VITALS (11 sets, daily range): BP systolic 95–111; BP diastolic 53–69; PULSE 96–105; RESP 15–17; TEMP 36.3–37.1; O2SAT 90–94
[2025-09-16 10:53] LABS: Hemoglobin 5.70 g/dL (11.27-16.99)
[2025-09-16 10:54] LABS: Hematocrit 20.0 % (37-53)
== END 2025-09-19 23:59 | disposition home or self-care (01) ==
PROVIDERS: Specialist; PCP Family Medicine; Visit Provider Family Medicine
DX: D64.9 Anemia, unspecified (principal)
CPT/HCPCS: 36430; 85014; 85018; 86850; 86900; 86920; P9016

== ENCOUNTER 2025-09-19 15:01 | Outpatient (CLI) | payer MEDICARE, OTHER, SELFPAY | END 2025-09-19 15:02 | disposition home or self-care (01) | PROVIDERS: PCP Family Medicine; Visit Provider Family Medicine | DX: R79.0 Abnormal level of blood mineral (principal) | CPT/HCPCS: 85651; 86140 ==